=== PATIENT | female | born 1975 | race Caucasian/White ===

== ENCOUNTER → 2020-07-17 15:53 | Outpatient (CLI) | payer OTHER, SELFPAY ==
--- NOTE | ~2020-07-17 | MM_ITS ---
EXAMINATION: MM screening johnathan BI w dru HISTORY: Screening TECHNIQUE: Craniocaudal and mediolateral oblique 3-D tomosynthesis images were obtained and synthetic 2-D images were generated. CAD analysis was submitted and interpreted. COMPARISON: Comparison to multiple prior studies sequentially, with oldest reviewed study dated 09/03. BREAST PARENCHYMAL COMPOSITION: There are scattered areas of fibroglandular density. FINDINGS: There is no evidence of suspicious mass, calcification, or architectural distortion to sugg est malignancy in either breast. There has been no suspicious interval change. IMPRESSION: 1. No mammographic evidence of malignancy. 2. Recommend routine screening mammography in one year. BI-RADS Category 1: Negative Reviewed, dictated and finalized at location A.
== END ==
PROVIDERS: Visit Provider Nurse Practitioner Obstetrics & Gynecology
DX: Z12.31 Encounter for screening mammogram for malignant neoplasm of breast (principal)
CPT/HCPCS: 77063; 77067

== ENCOUNTER 2020-09-03 13:34 | Emergency (ER) | payer OTHER, SELFPAY ==
--- NOTE | ~2020-09-03 | XR_ITS ---
XR shoulder LT min 2V DATE: 09/03/2020 17:15 INDICATION: Left shoulder pain. TECHNIQUE: 4 views COMPARISON: None FINDINGS: There is patchy sclerosis of the humeral head and neck consistent with bone infarct or iglesia gn chondroid tumor. No fracture or dislocation, periosteal reaction or bone destruction. Normal alignment at the acromioc lavicular and glenohumeral joints IMPRESSION: Patchy sclerosis of humeral head and neck, consistent with infarct or benign chondroid ne oplasm Reviewed, dictated and finalized at location A. IMPRESSION: Patchy sclerosis of humeral head and neck, consistent with infarct or benign chondroid neoplasm
--- NOTE | ~2020-09-03 | XR_ITS ---
EXAMINATION: XR chest 2V DATE: 09/03/2020 14:14 INDICATION: Left arm pain TECHNIQUE: PA and lateral views of the chest are obtained. COMPARISON: 06/26/2014 FINDINGS: The lungs are free of acute opacities. There is no pleural effusion or pneumothorax. The ca rdiomediastinal silhouette is normal. There is mild thoracic spondylosis. A stable sclerotic lesion o f the proximal shaft of the left humerus has the appearance of an enchondroma. IMPRESSION: 1. No acute cardiopulmonary abnormality. Reviewed, dictated and finalized at location B.
--- NOTE | 2020-09-03 13:57 | ECG_ITS ---
Measurements Intervals [place] Rate: 76 P: 30 SC: 146 QRS: 42 QRSD: 101 T: 22 QT: 379 QTc: 426 Interpretive Statements SINUS RHYTHM DELAYED PRECORDIAL R/S TRANSITION BORDERLINE ECG Electronically Signed On 09-03-2020 14:53:41 CDT by Blu Terry D.O.
[2020-09-03 14:51] VITALS: BP 136/90; PULSE 84; RESP 14; TEMP 36.6; O2SAT 99
[2020-09-03 14:54] LABS: Basophils Absolute Auto 0.1 K/mm3 (0.0-0.1); Basophils Percent Auto 0.5 % (0.2-1.2); Eosinophils Absolute Auto 0.1 K/mm3 (0-0.3); Eosinophils Percent Auto 0.5 % (0-4.4); Hematocrit 42.1 % (37.0-47.0); Hemoglobin 14.1 g/dL (12.0-15.0); Immature Granulocyte Absolute 0.04 K/mm3 (0.00-0.031); Immature Granulocyte Percent A 0.4 % (0-0.5); Lymphocytes Absolute Auto 1.29 K/mm3 (0.9-3.2); Mean Corpuscular HGB Conc 33.5 g/dl (32-36); Mean Corpuscular Hemoglobin 29.4 pg (26-34); Mean Corpuscular Volume 87.7 fl (80-100); Mean Platelet Volume 10.7 fl (7.4-10.4); Monocytes Absolute Auto 0.5 K/mm3 (0.1-0.6); Monocytes Percent Auto 5.3 % (2.6-8.5); Neutrophils Absolute Auto 7.3 K/mm3 (1.3-6.7); Neutrophils Percent Auto 79.3 % (45.5-73.1); Platelet Count Result 302 k/mm3 (150-375); Red Cell Distribution Width 12.3 % (11.5-14.5); White Blood Count 9.2 K/mm3 (4.5-10.0)
[2020-09-03 15:03] LABS: INR 0.9; Prothrombin Time 12.2 Seconds (11.1-14.7)
[2020-09-03 15:04] LABS: Partial Thromboplastin Time 24.2 SECONDS (22.3-36.8)
[2020-09-03 15:07] LABS: Anion Gap 9 mmol/L (8-16); Blood Urea Nitrogen 11 mg/dL (7-17); Calcium 9.1 mg/dL (8.4-10.2); Carbon Dioxide 25 mmol/L (22-30); Chloride 104 mmol/L (98-107); Estimated CRCL calculation 91 ml/min; Estimated Glomerular Filt Rate > 60; Glucose 125 mg/dL (65-110); Potassium 3.9 mmol/L (3.4-5.0); Sodium 138 mmol/L (137-145)
[2020-09-03 15:18] LABS: Troponin I < 0.012 ng/mL (0.000-0.034)
--- NOTE | 2020-09-03 17:06 | ED.UPPEXIN ---
HPI - Extremity Injury (Upper) General Chief Complaint: Chest Pain Stated Complaint: chest pain/arm pain Time Seen by Provider: 09/03/20 16:51 Source: patient Mode of arrival: ambulatory Limitations: no limitations History of Present Illness HPI narrative: This is a 44-year-old female that presents to the emergency department for left shoulder pain present x2 days. Reports the pain started in the back of her shoulder. It now radiates to the front of her shoulder and anterior chest. It is worsened with palpation of the area. Relieved with certain positions of her shoulder. She took an anti-inflammatory this morning with little relief. Denies fever, cough, shortness of breath, or lower extremity edema. Related Data Allergies Allergy/AdvReac Type Severity Reaction Status Date / Time No Known Allergies Allergy Verified 09/03/20 18:00 Review of Systems Review of Systems: Narrative: CONSTITUTIONAL: Denies fever CARDIOVASCULAR: Denies chest pain. Denies edema. RESPIRATORY: Denies cough or dyspnea. MUSCULOSKELETAL: Reports joint pain, and myalgia. NEUROLOGIC: Denies numbness, or weakness. All systems reviewed & are unremarkable except as noted in HPI and below PMFSH Social History Social History (Updated 09/03/20 @ 17:19 by Nereyda Oconnell PA-C) Smoking status: Never smoker Substance use: never Exam Narrative: Exam Narrative: GENERAL: Well-appearing, well-nourished, and in no acute distress. HEAD: Normocephalic, atraumatic. EYES: EOMI. CHEST: Clear to auscultation. No respiratory distress. No wheezes rales or rhonchi HEART: Regular rate and rhythm. No murmur heard. Normal peripheral pulses. BACK: Tender to palpation of the left parascapular musculature EXTREMITIES: Normal range of motion. No edema, erythema or warmth. Normal radial pulses SKIN: Warm, dry, no rash. NEURO: No focal deficits. Alert and oriented x3. PSYCH: Normal mood and affect Course Consultations Consultation #1: Spoke with SILVANO Brenner for Dr. Nelson who reports patient may follow-up in clinic this week Date: 09/03/20 Time: 18:30 Vital Signs Vital signs: Vital Signs Temperature 98 F 09/03/20 14:51 Pulse Rate 84 09/03/20 14:51 Respiratory Rate 14 09/03/20 14:51 Blood Pressure 136/90 09/03/20 14:51 Pulse Oximetry 99 09/03/20 14:51 Temperature 98 F 09/03/20 14:51 Pulse Rate 79 09/03/20 18:00 Respiratory Rate 17 09/03/20 18:00 Blood Pressure 124/76 09/03/20 18:00 Pulse Oximetry 100 09/03/20 18:00 MDM - Extremity Injury (Upper) MDM Narrative Medical decision making narrative: Patient presents the emergency department for left-sided posterior shoulder pain ongoing over the last 2 days. Reports that it started radiating into the front of her chest which prompted her to be seen. She is afebrile and nontoxic-appearing. She is neurovascularly intact. Vitals are stable. CBC and metabolic panel without concerning findings. EKG without concerning changes and baseline and 3-hour troponin are negative. Her heart score is a two. Chest x-ray is without acute cardiopulmonary abnormality. Left shoulder x-ray shows patchy sclerosis of the humeral head and neck, consistent with infarct or benign chondroid neoplasm. Spoke with SILVANO Brenner for Dr. Nelson who reports patient may follow-up in clinic this week for this finding. Patient reports improvement with Toradol and Valium. Is stable and felt appropriate for further outpatient evaluation. She was given warnings to return to the ER Lab Data Attestation: I reviewed the patient's lab results. Result diagrams: 09/03/20 14:41 09/03/20 14:41 Labs: Lab Results 09/03/20 09/03/20 09/03/20 Range/Units 14:41 14:41 14:41 WBC 9.2 (4.5-10.0) K/mm3 RBC 4.80 (4.2-5.4) M/mm3 Hgb 14.1 (12.0-15.0) g/dL Hct 42.1 (37.0-47.0) % MCV 87.7 (80-100) fl MCH 29.4 (26-34) pg MCHC 33.5 (32-36) g/dl RDW 12.3 (11.5-14.5) % Plt Count 302
[2020-09-03 17:32] LABS: Troponin I < 0.012 ng/mL (0.000-0.034)
[2020-09-03 17:38] VITALS: BP 135/68; PULSE 75; RESP 20; O2SAT 98
[2020-09-03 17:41] VITALS: PULSE 76
[2020-09-03 18:00] VITALS: BP 124/76; PULSE 79; RESP 17; O2SAT 100
[2020-09-03] MEDS: diazePAM INJ (*CRX) 10 MG/2 ML SYRINGE 5 MG IV PUSH (18:12)
[2020-09-03] MEDS: KETOROLAC 30 MG/ML VIAL (*BKC) IV PUSH (18:12)
[2020-09-03 19:32] VITALS: BP 134/78; PULSE 78; RESP 16; O2SAT 98
== END 2020-09-03 19:56 | disposition home or self-care (01) ==
PROVIDERS: Emergency Medicine; Emergency Provider Family Medicine
DX: M89.9 Disorder of bone, unspecified (principal); R07.89 Other chest pain; R94.31 Abnormal electrocardiogram [ECG] [EKG]
CPT/HCPCS: 36415; 71046; 73030; 80048; 84484; 85025; 85610; 85730; 93005; 96374; 96375; 99284; J1885; J3360

== ENCOUNTER 2021-07-05 01:45 | Emergency (ER) | payer OTHER, SELFPAY ==
[2021-07-05 01:46] VITALS: BP 103/82; PULSE 89; RESP 18; TEMP 36.2; O2SAT 93
[2021-07-05] MEDS: KETOROLAC 30 MG/ML VIAL (*BKC) IM (02:18)
--- NOTE | 2021-07-05 03:03 | ED.BACK ---
HPI - Back Pain/Injury General Chief Complaint: Back Pain/Injury Stated Complaint: back pain Time Seen by Provider: 07/05/21 01:56 Source: patient History of Present Illness HPI Narrative: Patient presents with low back pain. Reports she was at the pool today turned and felt a squeezing sensation in her lower back. She continue with her day went out for dinner and spent time with her family and tolerable. She went to bed and woke up to use the restroom and had severe low back pain achy, constant, worse with any sort of movement of her torso, no radiation. She reports when she tries to move she sees stars as her pain is so severe. Denies any bowel or bladder incontinence denies any focal numbness or weakness denies any recent spinal instrumentation, major changes in weight, IV drug use. Related Data Home Medications Medication Instructions Recorded Confirmed azelastine 137 mcg (0.1 %) nasal 137 mcg INTRANASAL Q12H 06/03/21 06/03/21 spray aerosol levocetirizine 5 mg tablet 5 mg PO DAILY 06/03/21 06/03/21 montelukast 10 mg tablet 10 mg PO DAILY 06/03/21 06/03/21 omeprazole 20 mg capsule,delayed 20 mg PO DAILY 06/03/21 06/03/21 release Allergies Allergy/AdvReac Type Severity Reaction Status Date / Time No Known Allergies Allergy Verified 06/03/21 08:13 Review of Systems Review of Systems: CONSTITUTIONAL: Denies fever, chills, or sweats. EYES: Denies visual changes, redness, or discharge. ENT: Denies rhinorrhea, congestion, sore throat, or otalgia. CARDIOVASCULAR: Denies chest pain, palpitations, or edema. RESPIRATORY: Denies cough or dyspnea. GASTROINTESTINAL: Denies abdominal pain, nausea, vomiting, or diarrhea. GENITOURINARY: Denies dysuria or hematuria. SKIN: Denies rash or itching. MUSCULOSKELETAL: Denies joint pain, or myalgia. NEUROLOGIC: Denies headache, numbness, dizziness, or weakness. PSYCHIATRIC: Denies anxiety or depression. 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 HEAD: Normocephalic, atraumatic. EYES: PERRLA and EOMI. ENT: Nares clear, no rhinorrhea or epistaxis. Mucous membranes moist. NECK: Supple. No masses. No JVD ABDOMEN: Soft, nontender, nondistended, normal active bowel sounds. EXTREMITIES: Normal range of motion. No edema. BACK: Diffuse low back pain in the lumbar spine SKIN: Warm, dry, no rash. NEURO: 5 out of 5 strength in bilateral lower extremities sensation intact to light touch 2+ knee reflexes symmetric alert and oriented x3. PSYCH: Normal mood and affect. Course Reevaluation(s) Reevaluation #1: Patient with no significant change in symptoms. Plan reviewed with patient. Patient is calm outpatient plan. Date: 07/05/21 Time: 03:05 Vital Signs Vital signs: Vital Signs Temperature 36.2 C L 07/05/21 01:46 Pulse Rate 89 07/05/21 01:46 Respiratory Rate 18 07/05/21 01:46 Blood Pressure 103/82 07/05/21 01:46 Pulse Oximetry 93 07/05/21 01:46 Temperature 36.2 C L 07/05/21 01:46 Pulse Rate 80 07/05/21 03:48 Respiratory Rate 16 07/05/21 03:48 Blood Pressure 110/72 07/05/21 03:48 Pulse Oximetry 100 05
[2021-07-05] MEDS: CYCLOBENZAPRINE HCL 10 MG TABLET PO (03:42)
[2021-07-05 03:48] VITALS: BP 110/72; PULSE 80; RESP 16; O2SAT 100
== END 2021-07-05 03:52 | disposition home or self-care (01) ==
PROVIDERS: Emergency Provider Emergency Medicine; PCP Family Medicine
DX: M54.50 Low back pain, unspecified (principal); Z86.16 Personal history of COVID-19
CPT/HCPCS: 96372; 99283; A9270; J1885

== ENCOUNTER → 2021-09-30 07:02 | Outpatient (CLI) | payer OTHER, SELFPAY ==
--- NOTE | ~2021-09-30 | MM_ITS ---
EXAMINATION: MM screening johnathan BI w dru HISTORY: Screening mammogram TECHNIQUE: Craniocaudal and mediolateral oblique 3-D tomosynthesis images were obtained and synthetic 2-D images were generated. CAD analysis was submitted and interpreted. COMPARISON: 07/17/2020, 01/05/2017, 12/05/2015 bilateral screening mammogram examinations BREAST PARENCHYMAL COMPOSITION: There are scattered areas of fibroglandular density. FINDINGS: Suggestion of a new 5 mm irregular mid to lower lateral left breast mass (MLO Tomosynthesis image 16/96; craniocaudal Tomosynthesis image 16/84). Diagnostic left mammogram is recommended, with ultrasound if required. Otherwise there is no evidence of suspicious mass, calcification, or architectural distortion to sugg est malignancy in either breast. There has been no other suspicious interval change. IMPRESSION: 1. Possible new 5 mm irregular mass, mid to lower outer left breast 2. Diagnostic left mammogram is recommended, with ultrasound if required BI-RADS Category 0: Incomplete: Needs additional imaging evaluation. Reviewed, dictated and finalized at location A.
== END ==
PROVIDERS: PCP Physician Assistant Medical; Visit Provider Nurse Practitioner Obstetrics & Gynecology
DX: Z12.31 Encounter for screening mammogram for malignant neoplasm of breast (principal); R92.8 Other abnormal and inconclusive findings on diagnostic imaging of breast
CPT/HCPCS: 77063; 77067

== ENCOUNTER → 2021-11-05 07:35 | Outpatient (CLI) | payer OTHER, SELFPAY ==
--- NOTE | ~2021-11-05 | MMUS_ITS ---
EXAMINATION: MM diagnostic johnathan LT w dru, US breast LT limited HISTORY: Possible left breast mass on screening mammogram TECHNIQUE: Additional 3-D tomosynthesis images of the left breast were performed and synthetic 2-D im ages were generated. CAD analysis was submitted and interpreted. High resolution limited left breast ultrasound was performed. COMPARISON: 09/30/2021, 07/17/2020, 01/05/2017 FINDINGS: MAMMOGRAPHIC FINDINGS: There is a 6 mm mass in the middle third of the outer breast with irregular and indistinct margins at the 3:00 location 8 cm from the nipple. ULTRASOUND: There is a 6 mm x 4 mm mildly irregular, parallel, hypoechoic mass with circumscribed margins, finance intern al vascularity, and no posterior features at the 3:00 location 6 cm from the nipple. IMPRESSION: 1. Indeterminate left breast mass. 2. Ultrasound-guided biopsy is recommended. BI-RADS category 4, suspicious findings. Reviewed, dictated and finalized at location A. IMPRESSION: 1. Indeterminate left breast mass. 2. Ultrasound-guided biopsy is recommended. BI-RADS category 4, suspicious findings.
== END ==
PROVIDERS: PCP Physician Assistant Medical; Visit Provider Nurse Practitioner Obstetrics & Gynecology
DX: R92.8 Other abnormal and inconclusive findings on diagnostic imaging of breast (principal)
CPT/HCPCS: 76642; 77061; 77065; G0279

== ENCOUNTER → 2022-06-30 09:13 | Outpatient (CLI) | payer OTHER, SELFPAY ==
--- NOTE | ~2022-06-30 | CT_ITS ---
EXAMINATION: CT sinus wo con DATE: 06/30/2022 09:24 INDICATION: Chronic sinusitis TECHNIQUE: Computed tomography (CT) of the paranasal sinuses was performed without intravenous contra st. The dose-length product was 257.01 mGy-cm. Automated exposure control and iterative reconstructio n technique were employed. COMPARISON: None FINDINGS: Paranasal sinuses and mastoids are pneumatized. No significant mucosal thickening, air-flui d level or mucoperiosteal reaction. There is a small osteoma involving the left ethmoid air cells. Ma stoids are pneumatized. Leftward nasal septal deviation. Ostiomeatal units are patent. IMPRESSION: 1. No significant sinus disease. Reviewed, dictated and finalized at location L.
== END ==
PROVIDERS: PCP Physician Assistant Medical; Visit Provider Otolaryngology
DX: J32.9 Chronic sinusitis, unspecified (principal)
CPT/HCPCS: 70486

== ENCOUNTER 2022-09-12 09:01 | Outpatient (CLI) | payer OTHER, SELFPAY ==
--- NOTE | 2022-09-12 09:07 | ECG_ITS ---
Measurements Intervals [place] Rate: 75 P: 34 VT: 152 QRS: 47 QRSD: 96 T: 33 QT: 391 QTc: 438 Interpretive Statements SINUS RHYTHM BASELINE ARTIFACT- II, III, AVR, AVL, AVF NORMAL ECG COMPARED TO ECG 09/03/2020 13:53:40 NO SIGNIFICANT CHANGES Electronically Signed On 09-12-2022 11:02:38 CDT by Blu Terry D.O.
== END 2022-09-12 09:02 | disposition home or self-care (01) ==
LOC: ANHCARD 09:03
PROVIDERS: PCP Physician Assistant Medical; Visit Provider Otolaryngology
DX: E78.5 Hyperlipidemia, unspecified (principal)
CPT/HCPCS: 93005

== ENCOUNTER 2022-09-18 02:49 | Day surgery (SDC) | payer OTHER, SELFPAY ==
[2022-09-09 10:10] VITALS: BMI 33.0
--- NOTE | 2022-09-09 10:21 | PC.NURSE ---
Report to the Outpatient Waiting Room, entrance under the green pavilion located off [facility], at time 10:30AM on date 09-18-22. Planned Procedure Time: 12:30PM. Time changes happen often and if your time is changed the preop area will call you the afternoon before. - You and your visitor will be asked to self-screen and do not enter if you have any COVID symptoms. - A mask is optional within the hospital at this time. Patients may have clear liquids (water, carbonated beverages, clear teas, apple juice) until 3 hours prior to surgery (09:30AM) with a maximum of 20 ounces. - No food from midnight until time of surgery Take the following medications with a SIP of water the morning of surgery: LEVOTHYROXINE DO NOT STOP ANY OF YOUR OTHER PRESCRIPTION MEDICATIONS PRIOR TO SURGERY ?EXCEPT THE FOLLOWING Medications to discontinue per physician: N/A Please no make-up, nail thai, hairspray, perfume, deodorant, or body powder the day of surgery. No jewelry (including any body piercings) or valuables the day of surgery, leave them at home. Please take a shower or bath the night before, or the morning of, surgery with an antibacterial soap. Wear comfortable, loose fitting clothing. - Jewelry must be removed prior to entering the operating room. Rings and piercings that are not removed may be cut off. - The hospital will not accept responsibility for valuables. - Please leave all valuables, including medications, at home the day of surgery. If you are going home after surgery, a licensed bellman driver must drive you home. - NO public transportation without another adult if you receive anesthesia. - We recommend that an adult stay with you for 24 hours following discharge. - We also recommend that you do not drive, make important decision, drink alcoholic beverages, or take any drugs that were not prescribed by your health care provider for at least 24 hours after your discharge time. Follow any additional instructions given to you from your surgeon. If you or anyone in your household have experienced Covid symptoms in the past week, please notify your surgeon or the nurse liaison at the phone number below for possible testing. Telephone instructions given to PATIENT and asked if any additional questions and then verbalized understanding. Patient advised to call surgeon office or pre surgery nurse liaison [phone] if any additional questions.
--- NOTE | 2022-09-17 14:31 | PM.IMHP ---
H&P: HPI History of Present Illness Date/Time: 09/17/22 14:31 Chief Complaint: Skull base osteoma chronic sinusitis septal deviation turbinate hypertrophy recurrent sinusitis Narrative: planned procedure Review of Systems Review of Systems: All systems reviewed & are unremarkable except as noted in HPI and below PMFSH Past Medical History Medical History BMI 40.0-44.9, adult COVID-19 Family History Family History (Updated 06/24/22 @ 08:57 by Leah De Los Santos CMA) Father Hypertension Hyperlipidemia Respiratory disease COPD (chronic obstructive pulmonary disease) Mother H/O blood clots Sibling Diabetes mellitus Grandparent Alcoholism Social History Social History (Updated 06/24/22 @ 08:55 by Leah De Los Santos CMA) Smoking status: Never smoker Second hand tobacco smoke exposure: No Alcohol intake: current Drinks per week: 6 Alcohol use details: socially Substance use: never Substance use type: does not use Lack of Transportation: No Lack of Food: Never True Current Housing: I Have Housing Concerned About Future Housing: No Difficulty Paying Gas/Electric Bills: No Difficulty Paying for Meds: No Currently Unemployed: No Education: High School Diploma/GED Difficulty w/ Childcare or Family Care: No Living arrangements: with roommate(s) Occupation/Education: occupation 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 Gender identity (if verbalized by the patient): Female Spiritual care concerns: No Meds Home Medications and Allergies Home Medications Medication Instructions Recorded Confirmed Type azelastine 137 mcg (0.1 %) nasal 137 mcg intranasal Q12H 06/03/21 09/09/22 History spray aerosol levocetirizine 5 mg tablet (Xyzal) 5 mg PO DAILY 06/03/21 09/09/22 History montelukast 10 mg tablet 10 mg PO DAILY 06/03/21 09/09/22 History omeprazole 20 mg capsule,delayed 20 mg PO DAILY 06/03/21 09/09/22 History release rosuvastatin 20 mg tablet (Crestor) 20 mg PO DAILY #30 tabs 06/10/22 09/09/22 Rx trazodone 50 mg tablet 50 mg PO .qhs #30 tabs 06/10/22 09/09/22 Rx levothyroxine 50 mcg tablet 50 mcg PO DAILY #90 tabs 07/26/22 09/09/22 Rx Allergies Allergy/AdvReac Type Severity Reaction Status Date / Time No Known Allergies Allergy Verified 09/09/22 10:12 Exam Narrative: skull base osteoma chronic appearing sinuses septal deviation turbinate hypertrophy Assessment and Plan Assessment and plan (1) Nasal congestion: Code(s): R09.81 - Nasal congestion Status: Acute Assessment and Plan: plan image guided endoscopic bilateral maxillary antrostomies total ethmoidectomies removal of left-sided skull base tumor versus just drilling it down. Lost to septoplasty turbinate reduction bilaterally outfracture. Risks were discussed including the fact that this is fairly aggressive sinus surgery the patient does have ethmoid disease on the right and recurrent sinus infections documented PCP office like 6-7 per year. Risks were discussed including CSF leak brain brain damage change in vision total blindness need for further procedures need for recurrent debridements. Postoperative infection. Damage to any structure above the clavicles by myself. Damage to any structure during the induction and maintenance of anesthesia. Septal perforation. Time off work time off school. Luis E or chronic use. Patient voiced understanding and agreed. (2) Nasal obstruction: Code(s): J34.89 - Other specified disorders of nose and nasal sinuses Status: Acute (3) Hypertrophy of both inferior nasal turbinates: Code(s): J34.3 - Hypertrophy of nasal turbinates Status: Acute (4) Nasal septal deviation: Code(s): J34.2 - Deviated nasal septum Status: Acute (5) PND (post-nasal drip): Code(s): R09.82 - Postnasal drip
[2022-09-18] VITALS (9 sets, daily range): BP systolic 127–155; BP diastolic 67–99; PULSE 61–89; RESP 12–20; TEMP 36.2–36.5; O2SAT 97–100; BMI 44.2
--- NOTE | 2022-09-18 07:18 | WPDHPUPDATE1 ---
History and Physical Update Update Date/Time: 09/18/22 07:18 History and Physical has been reviewed, including an updated exam of the patient. There are NO changes in the patient's condition. Risks, benefits, and alternatives have been discussed and questions answered. Patient agrees to proceed with procedure.
[2022-09-18] MEDS: LACTATED RINGERS 1,000 ML 30 ML IV CONT ×2 (08:10→12:22)
[2022-09-18] MEDS: SCOPOLAMINE 1.5 MG PATCH TRANSDERM (08:20)
[2022-09-18] MEDS: ACETAMINOPHEN 500 MG TABLET 1000 MG PO (08:21)
--- NOTE | 2022-09-18 09:01 | WPDANESEPPF ---
Anes - Initial Pre Proc Eval Procedure: Operation Date: 09/18/22 09:30 Proposed Procedures p Image Guided Bilateral Inferior Turbinectomy with Outfracture, Right Maxillary Antrostomy without Tissue Removal, Bilateral Total Ethmoidectomies, Resection Skull Base Tumor - Favian Salas MD s Septoplasty - Favian Salas MD Date/Time: 09/18/22 09:01 Surgeon: Favian Salas MD Pre Op Diagnosis: Chr Sinusitis Patient Data Age: 46 Gender: F Height: 1.57 m Weight: 109.8 kg Allergies Allergy/AdvReac Type Severity Reaction Status Date / Time No Known Allergies Allergy Verified 09/18/22 07:56 Home Medications Medication Instructions Recorded Confirmed Type azelastine 137 mcg (0.1 %) nasal 137 mcg intranasal Q12H 06/03/21 09/09/22 History spray aerosol levocetirizine 5 mg tablet (Xyzal) 5 mg PO DAILY 06/03/21 09/09/22 History montelukast 10 mg tablet 10 mg PO DAILY 06/03/21 09/09/22 History omeprazole 20 mg capsule,delayed 20 mg PO DAILY 06/03/21 09/09/22 History release rosuvastatin 20 mg tablet (Crestor) 20 mg PO DAILY #30 tabs 06/10/22 09/09/22 Rx trazodone 50 mg tablet 50 mg PO .qhs #30 tabs 06/10/22 09/09/22 Rx levothyroxine 50 mcg tablet 50 mcg PO DAILY #90 tabs 07/26/22 09/18/22 Rx Patient hx anesthesia problems: none Family hx anesthesia problems: none Results Review: All pre-operative results and documents have been reviewed as part of the pre-operative evaluation. [facility] Past Medical History Medical History BMI 40.0-44.9, adult COVID-19 Family History Family History Father Hypertension Hyperlipidemia Respiratory disease COPD (chronic obstructive pulmonary disease) Mother H/O blood clots Sibling Diabetes mellitus Grandparent Alcoholism Social History Social History Smoking status: Never smoker Second hand tobacco smoke exposure: No Alcohol intake: current Drinks per week: 6 Alcohol use details: socially Substance use: never Substance use type: does not use Lack of Transportation: No Lack of Food: Never True Current Housing: I Have Housing Concerned About Future Housing: No Difficulty Paying Gas/Electric Bills: No Difficulty Paying for Meds: No Currently Unemployed: No Education: High School Diploma/GED Difficulty w/ Childcare or Family Care: No Living arrangements: with roommate(s) Occupation/Education: occupation 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 Informed Consent: The patient's anesthetic plan and its attendant risks and benefits were discussed with the patient/family/POA. Questions were solicited and answers provided to the satisfaction of the patient/family/POA.
[2022-09-18] MEDS: ceFAZolin 2 GM/D5W 50 ML 2 GM/50 ML BAG IVPB (09:30)
[2022-09-18] MEDS: LIDO 1%/EPINEPHRINE 1:100,000 50 ML VIAL INFILTRATE (09:54)
[2022-09-18] MEDS: OXYMETAZOLINE HCL 0.05% NAS 15 ML BTL (*BKC) 1 SPRAY NASAL (09:54)
[2022-09-18] MEDS: fentaNYL CITRATE INJ (*CRX) 100 MCG/2 ML VIAL 25 MCG IV PUSH ×4 (12:40→12:53)
--- NOTE | 2022-09-18 12:52 | W.PM.PROC2 ---
Procedure Note - Detailed Date of Procedure 09/18/22 Pre-op Diagnosis Chr Sinusitis, septal deviation, inferior turbinate hypertrophy, skull base tumor Post-op Diagnosis Same Procedure Performed resection of left skull base tumor inferior turbinate reduction with outfracture endoscopic assisted septoplasty bilateral image guided maxillary antrostomies bilateral image guided anterior ethmoidectomies Surgeon Favian Salas MD Anesthesia General Indications see above Findings minimally diseased mucosa in the aforementioned sinuses severe left septal deviation well reduced large turbinates well reduced large skull base osteoma will sent for pathologic analysis 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 Description of Procedure Patient identified consent verified. Patient brought operating. . General anesthesia induced endotracheal tube secured the airway. Patient prepped draped position procedure confirmed 2nd time-out performed. Image guidance initiated confirmed. Afrin-soaked pledgets placed 5 minutes then. Total 13 cc 1% lidocaine 1 100,000 parts epinephrine injected the bilateral nasal septum. [place] incision made left-sided nasal septal flap elevated with 7 [place]e suction osteotome utilized to cross right nasal septal flap elevated deviated cartilage and bone removed Kian [place] forceps Beny forceps and osteotome. Denis incision closed interrupted 5 0 fast gut sutures. Turbinates reduced submucosal plane with microdebrider with turbinate blade and then outfractured [place] elevator. Entry point was cauterized mulberry tips were cauterized. Maxillary antrostomies performed with image guidance ball tip probe straight through cut micro and microdebrider image guidance microdebrider. The all the sinuses were opened up using image guidance. They were ensured to connect the natural os no injury to the orbit and ethmoidectomies anteriorly performed with [place] microdebrider image guidance straight through cut. Left osteoma encountered middle turbinectomy performed because the osteoma involving middle turbinate. Ostium was drilled in the skull base using paula tipped high-speed 70 degree drill. Other able to crack the base off the skull base and I tried pretty forcefully. The sinuses were widely opened around the sethi present a problem if it did be decades. Bilateral nasal passages copiously irrigated suctioned out minimal bleeding. Nova pack placed bilaterally. Lerner splints placed bilaterally sutured anteriorly using 3-0 mattressed nylon suture. Ensured to be lateral to the right turbinate. Patient tolerated procedure well no complications blood loss 75 cc. I performed all dictated portions procedure. Care the patient given Anesthesiology. Estimated Blood Loss 75 Drains No Packing Yes (Novapak) Pathology Yes Complications No immediate complications Condition Stable Disposition PACU [facility] Billing Surgery - Charge Forward: Surgery Billing
[2022-09-18] MEDS: oxyCODONE HCL (*CRX) 5 MG TAB IR PO (13:36)
[2022-09-18] MEDS: ONDANSETRON INJ 4 MG/2 ML VIAL IV PUSH (13:41)
== END 2022-09-18 14:35 | disposition home or self-care (01) ==
PROVIDERS: PCP Physician Assistant Medical; Visit Provider Otolaryngology
PROC: (CPT 31299; principal; 2022-09-18 09:30)
PROC: (CPT 30520; 2022-09-18 09:30)
DX: J32.9 Chronic sinusitis, unspecified (principal); D16.4 Benign neoplasm of bones of skull and face; J34.2 Deviated nasal septum; J34.3 Hypertrophy of nasal turbinates; R09.81 Nasal congestion; J34.89 Other specified disorders of nose and nasal sinuses; R09.82 Postnasal drip; E66.01 Morbid (severe) obesity due to excess calories; Z68.41 Body mass index [BMI] 40.0-44.9, adult
CPT/HCPCS: 31299; 31256; 31254; 61782; 30520; 30140; 88307; A9270; J0330; J0690; J1100; J2250; J2405; J2704; J3010; J7120

== ENCOUNTER 2023-03-18 11:24 | Outpatient (CLI) | payer OTHER, SELFPAY ==
--- NOTE | ~2023-03-18 | MM_ITS ---
EXAMINATION: MM screening johnathan BI w dru HISTORY: Screening TECHNIQUE: Craniocaudal and mediolateral oblique 3-D tomosynthesis images were obtained and synthetic 2-D images were generated. CAD analysis was submitted and interpreted. COMPARISON: Comparison to multiple prior studies sequentially, with oldest reviewed study dated 09/03. BREAST PARENCHYMAL COMPOSITION: Not dense: There are scattered areas of fibroglandular density. FINDINGS: There is no evidence of suspicious mass, calcification, or architectural distortion to sugg est malignancy in either breast. There has been no suspicious interval change. IMPRESSION: 1. No mammographic evidence of malignancy. 2. Recommend routine screening mammography in one year. 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
== END 2023-03-18 11:25 ==
PROVIDERS: PCP Nurse Practitioner Obstetrics & Gynecology; Visit Provider Nurse Practitioner Obstetrics & Gynecology
DX: Z12.31 Encounter for screening mammogram for malignant neoplasm of breast (principal)
CPT/HCPCS: 77063; 77067

== ENCOUNTER 2023-05-04 12:20 | Emergency (ER) | payer OTHER, SELFPAY ==
--- NOTE | ~2023-05-04 | CT_ITS ---
EXAMINATION: CTA BRAIN/CAROTID DATE: 05/04/2023 13:21 INDICATION: Headache. Right-sided tingling. TECHNIQUE: Computed tomographic angiography (CTA) of the head and neck was performed with 100 mL Omni paque-350 intravenous contrast. Multiplanar reconstructions and maximum intensity projection 3D-recon structions of the carotid arteries and of the intracranial arteries were created by the technologist on a separate workstation. Precontrast CT of the head was also obtained. Automated exposure control and iterative reconstruction technique were employed.The dose-length product was 1539.34 mGy-cm. COMPARISON: None. FINDINGS: Carotid arteries: Ectatic ascending thoracic aorta which measures up to 4.0 cm in maximal diameter. There is is no evid ent atherosclerotic plaque with 0% stenosis of the right and left carotid bulbs relative to normal di stal artery lumen diameter (NASCET criteria). Left vertebral artery is dominant. 3.8 cm right thyroid mass. Cervical soft tissues are otherwise unremarkable. Apices of the lungs are clear. Likely positi onal nonfocal mild reversal of the normal cervical lordosis. Head: No acute intracranial hemorrhage, acute infarction or abnormal extra axial fluid collection. Ventricl es are normal and symmetric. No mass/mass effect. No abnormally enhancing brain lesions on the postco ntrast imaging. The orbits and mastoid air cells are normal. Mild mucosal thickening in the left ethm oid sinus and more prominent mucosal thickening at the left maxillary sinus. There are postoperative changes of bilateral antral window procedures along with a left middle turbinectomy and partial ethmo idectomy. Intracranial arteries Left vertebral artery is dominant. There is no hemodynamically significant stenosis in the vertebral, basilar and internal carotid arteries. There are no aneurysms identified. Both A1 and P1 segments a re patent. Cerebral arterial arborization appears symmetric. IMPRESSION: 1. No evident atherosclerotic plaque with 0% stenosis of the right and left carotid bulbs relative to normal distal artery lumen diameter (NASCET criteria). 2. Normal brain and cerebral CT angiogram. 3. Indeterminate 3.8 cm right thyroid mass. Recommend thyroid ultrasound for risk stratification. 4. Ectatic ascending thoracic aorta measuring up to 4.0 cm. Reviewed, dictated and finalized at location A. IMPRESSION: 1. No evident atherosclerotic plaque with 0% stenosis of the right and left car otid bulbs relative to normal distal artery lumen diameter (NASCET criteria). 2. Normal brain and cerebral CT angiogram. 3. Indeterminate 3.8 cm right thyroid mass. Recommend thyroid ultrasound for ri sk stratification. 4. Ectatic ascending thoracic aorta measuring up to 4.0 cm.
[2023-05-04 12:25] VITALS: BP 152/92; PULSE 97; RESP 17; TEMP 36.6; O2SAT 100
--- NOTE | 2023-05-04 12:33 | ECG_ITS ---
Measurements Intervals [place] Rate: 75 P: 32 IN: 149 QRS: 21 QRSD: 92 T: 29 QT: 387 QTc: 434 Interpretive Statements SINUS RHYTHM NORMAL ECG COMPARED TO ECG 09/12/2022 09:19:10 NO SIGNIFICANT CHANGES Electronically Signed On 05-04-2023 12:50:01 CDT by Blu Terry D.O.
[2023-05-04 12:58] LABS: Basophils Absolute Auto 0.1 K/mm3 (0.0-0.1); Basophils Percent Auto 0.5 % (0.2-1.2); Eosinophils Absolute Auto 0.1 K/mm3 (0-0.3); Eosinophils Percent Auto 0.5 % (0-4.4); Hematocrit 44.3 % (37.0-47.0); Hemoglobin 14.2 g/dL (12.0-15.0); Immature Granulocyte Absolute 0.05 K/mm3 (0.00-0.031); Immature Granulocyte Percent A 0.4 % (0-0.5); Lymphocytes Absolute Auto 1.93 K/mm3 (0.9-3.2); Lymphocytes Percent Auto 17.1 % (18.3-44.2); Mean Corpuscular HGB Conc 32.1 g/dl (32-36); Mean Corpuscular Hemoglobin 27.7 pg (26-34); Mean Corpuscular Volume 86.5 fl (80-100); Monocytes Absolute Auto 0.5 K/mm3 (0.1-0.6); Monocytes Percent Auto 4.3 % (2.6-8.5); Neutrophils Absolute Auto 8.7 K/mm3 (1.3-6.7); Neutrophils Percent Auto 77.2 % (45.5-73.1); Platelet Count Result 347 k/mm3 (150-375); Red Blood Count 5.12 M/mm3 (4.2-5.4); Red Cell Distribution Width 12.9 % (11.5-14.5); White Blood Count 11.3 K/mm3 (4.5-10.0)
[2023-05-04 13:02] VITALS: BP 143/79; PULSE 84; RESP 17; O2SAT 96
[2023-05-04 13:02] LABS: Alanine Aminotransferase 29 U/L (6-35); Albumin Level 4.4 g/dL (3.5-5.1); Alkaline Phosphatase 161 U/L (38-126); Anion Gap 5 mmol/L (8-16); Aspartate Amino Transferase 33 U/L (14-36); Bilirubin,Total 0.6 mg/dL (0.2-1.3); Blood Urea Nitrogen 15 mg/dL (7-17); Calcium 9.1 mg/dL (8.4-10.2); Carbon Dioxide 30 mmol/L (22-30); Chloride 103 mmol/L (98-107); Estimated CRCL calculation 109 ml/min; Estimated Glomerular Filt Rate > 60; Glucose 136 mg/dL (65-110); Potassium 3.9 mmol/L (3.4-5.0); Sodium 138 mmol/L (137-145)
[2023-05-04 13:03] VITALS: PULSE 80; RESP 15; O2SAT 100
[2023-05-04 13:04] LABS: INR 0.9; Prothrombin Time 12.9 Seconds (11.1-14.7)
[2023-05-04 13:05] LABS: Partial Thromboplastin Time 27.3 Seconds (22.3-36.8)
[2023-05-04 13:14] LABS: Troponin I < 0.012 ng/mL (0.000-0.034)
[2023-05-04 13:29] LABS: Influenza A QL RT-PCR Negative (Negative); Influenza B QL RT-PCR Negative (Negative); RSV RNA, RT-PCR Negative (Negative); SARS-CoV-2 RNA PCR Negative (Negative)
[2023-05-04 13:46] LABS: Appearance Urine Clear (Clear); Bilirubin Urine Negative (Negative); Blood Urine Negative (Negative); Color Urine Yellow (Yellow); Glucose Urine UA Negative (Negative); Ketones Urine Negative (Negative); Leukocyte Esterase Ur Negative LEU/UL (Negative); Nitrate Urine Negative (Negative); Protein Urine Negative (Negative); Urobilinogen Urine 0.2 mg/dL (<2.0)
[2023-05-04 14:00] LABS: Specific Grav Ur 1.049 (1.001-1.035)
[2023-05-04 14:01] VITALS: PULSE 78; RESP 17; O2SAT 99
[2023-05-04 14:01] LABS: Add Urine Microscopic? NO
--- NOTE | 2023-05-04 14:17 | ED.GENADULT ---
HPI - General Adult General Chief complaint: Unspecified Stated complaint: tingling left side of body Time Seen by Provider: 05/04/23 13:01 History of Present Illness HPI narrative: 47-year-old female with a history of hypothyroidism, hyperlipidemia presenting with paresthesias. Patient states that yesterday she developed a severe right-sided headache. She was sensitive to light and sounds. States that it was so bad that she had to call off work which she has never done before. She took Aleve and went to sleep and when she woke up this morning the headache had gone down to about a 4/10. States that she went to work and around 8:00 a.m. normal less paresthesias on the right side of her body. States that her arm and leg feel tingly like they are waking up from falling asleep. No vision or speech changes. No weakness. No recent infectious symptoms. No further complaints. Related Data Home Medications Medication Instructions Recorded Confirmed azelastine 137 mcg (0.1 %) nasal 137 mcg intranasal Q12H 06/03/21 10/29/22 spray aerosol levocetirizine 5 mg tablet (Xyzal) 5 mg PO DAILY 06/03/21 10/29/22 montelukast 10 mg tablet 10 mg PO DAILY 06/03/21 10/29/22 omeprazole 20 mg capsule,delayed 20 mg PO DAILY 06/03/21 10/29/22 release Allergies Allergy/AdvReac Type Severity Reaction Status Date / Time No Known Allergies Allergy Verified 05/04/23 12:21 Review of Systems Review of Systems: All systems reviewed & are unremarkable except as noted in HPI and below PMFSH Past Medical History Medical History BMI 40.0-44.9, adult COVID-19 Family History Family History Father Hypertension Hyperlipidemia Respiratory disease COPD (chronic obstructive pulmonary disease) Mother H/O blood clots Sibling Diabetes mellitus Grandparent Alcoholism Social History Social History Smoking status: Never smoker Second hand tobacco smoke exposure: No Alcohol intake: current Drinks per week: 6 Alcohol use details: socially Substance use: never Substance use type: does not use Lack of Transportation: No Lack of Food: Never True Current Housing: I Have Housing Concerned About Future Housing: No Difficulty Paying Gas/Electric Bills: No Difficulty Paying for Meds: No Currently Unemployed: No Education: High School Diploma/GED Difficulty w/ Childcare or Family Care: No Living arrangements: with roommate(s) Occupation/Education: occupation 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 HEAD: Normocephalic, atraumatic. EYES: PERRLA and EOMI. ENT: . Mucous membranes moist. NECK: Supple. CHEST: No respiratory distress. HEART: Regular rate and rhythm EXTREMITIES: Normal range of motion. No edema. SKIN: Warm, dry, no rash. NEURO: Alert and oriented x3. 5/5 strength in all extremities, no pronator drift, finger to nose intact, no facial droop, no aphasia or dysarthria, +diminished sensation R arm and leg PSYCH: Normal mood and affect. Course Vital Signs Vital signs: Vital Signs Temperature 97.8 F 05/04/23 12:25 Pulse Rate 97 05/04/23 12:25 Respiratory Rate 17 05/04/23 12:25 Blood Pressure 152/92 H 05/04/23 12:25 Pulse Oximetry 100 05/04/23 12:25 Oxygen Delivery Room Air 05/04/23 12:25 Temperature 98.4 F 05/04/23 16:39 Pulse Rate 78 05/04/23 16:39 Respiratory Rate 17 05/04/23 16:39 Blood Pressure 134/82 05/04/23 16:39 Pulse Oximetry 100 05/04/23 16:39 Oxygen Delivery Room Air 05/04/23 12:25 Medical Decision Making MDM Narrative Medical decision making narrative: 4
[2023-05-04] MEDS: KETOROLAC 30 MG/ML VIAL (*BKC) IV PUSH (14:25)
[2023-05-04] MEDS: diphenhydrAMINE HCl INJ 50 MG/ML VIAL IV PUSH (14:26)
[2023-05-04] MEDS: PROCHLORPERAZINE EDISYLATE 10 MG/2 ML VIAL IV PUSH (14:26)
[2023-05-04] MEDS: SODIUM CHLORIDE 0.9% IV 1,000 ML 999 ML IV CONT (14:26)
[2023-05-04 14:30] VITALS: BP 151/93; PULSE 85; RESP 20; O2SAT 100
[2023-05-04 14:32] LABS: Magnesium 1.9 mg/dL (1.6-2.3)
[2023-05-04 16:39] VITALS: BP 134/82; PULSE 78; RESP 17; TEMP 36.9; O2SAT 100
[2023-05-05 07:47] LABS: Glucose Point of Care 125 mg/dl (65-105)
== END 2023-05-04 16:40 | disposition home or self-care (01) ==
PROVIDERS: Emergency Medicine; Emergency Provider Emergency Medicine; PCP Physician Assistant Medical
DX: R20.2 Paresthesia of skin (principal); R51.9 Headache, unspecified; Z20.822 Contact with and (suspected) exposure to COVID-19; E03.9 Hypothyroidism, unspecified; E78.5 Hyperlipidemia, unspecified; Z86.16 Personal history of COVID-19; E07.89 Other specified disorders of thyroid
CPT/HCPCS: 36415; 70496; 70498; 80053; 81025; 82948; 83735; 84484; 85025; 85610; 85730; 87637; 93005; 96361; 96374; 96375; 99284; J0780; J1200; J1885; J7030; Q9967

== ENCOUNTER 2023-05-13 16:22 | Outpatient (CLI) | payer OTHER, SELFPAY ==
--- NOTE | ~2023-05-13 | US_ITS ---
US thyroid INDICATION: Thyroid mass TECHNIQUE: Real-time sonographic images of the thyroid gland were obtained. COMPARISON: No prior studies for comparison. FINDINGS: The right thyroid lobe measures 6.1 x 3.2 x 2.1 cm. The left thyroid lobe measures 3.7 x 1 .5 x 0.9 cm. In the right lobe there is a 3.8 x 2.8 x 3.1 cm mostly solid slightly hyperechoic wider than tall smoothly marginated mass without echogenic foci, TR 3. No mass is identified in the left lo be. Normal vascular flow is present. IMPRESSION: 1. Right thyroid mass measuring 3.8 cm, TR 3. Ultrasound-guided fine-needle aspiration biopsy recommended. Reviewed, dictated and finalized at location B.
== END 2023-05-13 16:23 ==
LOC: MICIMG 16:22
PROVIDERS: PCP Nurse Practitioner Family; Visit Provider Nurse Practitioner Family
DX: E07.89 Other specified disorders of thyroid (principal)
CPT/HCPCS: 76536

== ENCOUNTER 2023-07-02 12:47 | Outpatient (CLI) | payer OTHER, SELFPAY ==
--- NOTE | ~2023-07-02 | US_ITS ---
EXAMINATION: US FNA w image guidance DATE: 07/02/2023 13:50 INDICATION: Right thyroid nodule TECHNIQUE: A time-out was performed to verify the patient's name, date of , and procedure to be performed . The procedure and its benefits and risks were discussed with the patient. Risks specifically discus sed included bleeding and infection. The patient understood the risks and agreed to proceed. The neck was prepped and draped in the usual sterile manner. 5 mL 1% lidocaine was used for local anesthesia . 6 passes were made with a 25G needle into the lesion. Appropriate needle location was documented with continuous sonographic guidance. A sterile bandage was applied. There were no immediate compli cations. FINDINGS: Grayscale ultrasound images demonstrate biopsy needles advanced into a 4.1 x 4.1 x 2.8 cm TI RADS 3 r ight thyroid mass. IMPRESSION: 1. Successful ultrasound-guided fine needle aspiration of a 4.1 cm TI RADS 3 right thyroid mass. Reviewed, dictated and finalized at location A. IMPRESSION: 1. Successful ultrasound-guided fine needle aspiration of a 4.1 cm TI RADS 3 r ight thyroid mass.
== END 2023-07-02 12:48 | disposition home or self-care (01) ==
PROVIDERS: PCP Nurse Practitioner Family; Visit Provider Nurse Practitioner Family
DX: E07.89 Other specified disorders of thyroid (principal)
CPT/HCPCS: 10005; 88172; 88173; 88305

== ENCOUNTER 2023-07-13 09:07 | Outpatient (CLI) | payer OTHER, SELFPAY ==
--- NOTE | 2023-07-13 11:00 | NEURO_ITS ---
Impression: # Complains of numbness of arms and legs. Non-Diabetic. # Normal Nerve Conduction Study. No Carpal Tunnel Syndrome or ulnar neuropathy. # Normal needle/EMG exam. # Clinical correlation recommended. Nerve Conduction Studies Anti Sensory Summary Table Stim Site NR Peak (ms) P-T Amp (?V) Site1 Site2 Delta-P (ms) Dist (cm) Edgar (m/s) Left Median Anti Sensory (2-3nd Digit) Wrist 2.5 57.5 Wrist 2-3nd Digit 2.5 14.0 56 Wrist 2.6 68.5 Wrist 2-3nd Digit 2.5 14.0 56 Right Median Anti Sensory (2-3nd Digit) Wrist 2.7 69.9 Wrist 2-3nd Digit 2.7 14.0 52 Wrist 2.7 78.9 Wrist 2-3nd Digit 2.7 14.0 52 Left Radial Anti Sensory (Base 1st Digit) Wrist 2.2 17.2 Wrist Base 1st Digit 2.2 0.0 Right Radial Anti Sensory (Base 1st Digit) Wrist 2.5 18.4 Wrist Base 1st Digit 2.5 0.0 Left Sup Fibular Anti Sensory (Ant Lat Mall) 14 cm 3.4 15.4 14 cm Ant Lat Mall 3.4 16.0 47 Right Sup Fibular Anti Sensory (Ant Lat Mall) 14 cm 2.9 17.6 14 cm Ant Lat Mall 2.9 16.0 55 Left Sural Anti Sensory (Lat Mall) Calf 3.3 6.1 Calf Lat Mall 3.3 16.0 48 Right Sural Anti Sensory (Lat Mall) Calf 3.5 6.9 Calf Lat Mall 3.5 16.0 46 Left Ulnar Anti Sensory (5th Digit) Wrist 2.5 60.1 Wrist 5th Digit 2.5 14.0 56 Right Ulnar Anti Sensory (5th Digit) Wrist 2.1 62.3 Wrist 5th Digit 2.1 14.0 67 Motor Summary Table Stim Site NR Onset (ms) O-P Amp (mV) Site1 Site2 Delta-0 (ms) Dist (cm) Edgar (m/s) Left Median Motor (Abd Poll Brev) Wrist 2.5 2.7 Elbow Wrist 4.5 26.0 58 Elbow 7.0 1.6 Right Median Motor (Abd Poll Brev) Wrist 3.1 1.7 Elbow Wrist 4.7 26.0 55 Elbow 7.8 2.5 Left Peroneal Motor (Vastus Med) Ankle 3.4 1.8 Popit Ankle 7.1 36.0 51 Popit 10.5 1.3 Right Peroneal Motor (Vastus Med) Ankle 3.6 2.7 Popit Ankle 7.2 35.0 49 Popit 10.8 1.5 Left Tibial Motor (Abd Davis Brev) Ankle 3.9 8.4 Knee Ankle 7.3 38.0 52 Knee 11.2 4.6 Right Tibial Motor (Abd Davis Brev) Ankle 3.8 2.0 Knee Ankle 6.6 36.0 55 Knee 10.4 1.6 Left Ulnar Motor (Abd Dig Minimi) Wrist 2.1 6.0 A Elbow Wrist 5.2 30.0 58 A Elbow 7.3 5.5 Right Ulnar Motor (Abd Dig Minimi) Wrist 2.6 5.8 A Elbow Wrist 4.7 27.0 57 A Elbow 7.3 4.7 F Wave Studies NR F-Lat (ms) L-R F-Lat (ms) Left Median (Mrkrs) (Abd Poll Brev) 26.46 0.01 Right Median (Mrkrs) (Abd Poll Brev) 26.45 0.01 Left Peroneal (Mrkrs) (EDB) 47.31 0.59 Right Peroneal (Mrkrs) (EDB) 46.72 0.59 Left Tibial (Mrkrs) (Abd Hallucis) 47.21 0.27 Right Tibial (Mrkrs) (Abd Hallucis) 47.48 0.27 Left Ulnar (Mrkrs) (Abd Dig Min) 26.02 0.27 Right Ulnar (Mrkrs) (Abd Dig Min) 26.28 0.27 EMG Side Muscle Nerve Root Ins Act Fibs Amp Dur Recrt Comment Right 1stDorInt Ulnar C8-T1 Nml Nml Nml Nml Nml Right Ext Indicis Radial (Post Int) C7-8 Nml Nml Nml Nml Nml Right Ext Digitorum Radial (Post Int) C7-8 Nml Nml Nml Nml Nml Right BrachioRad Radial C5-6 Nml Nml Nml Nml Nml Right PronatorTeres Median C6-7 Nml Nml Nml Nml Nml Right Abd Poll Brev Median C8-T1 Nml Nml Nml Nml Nml Right ABD Dig Min Ulnar C8-T1 Nml Nml Nml Nml Nml Right AntTibialis Dp Br Fibula
== END 2023-07-13 09:08 | disposition home or self-care (01) ==
LOC: ANHNEURO 09:09
PROVIDERS: PCP Nurse Practitioner Family; Visit Provider Nurse Practitioner Family
DX: R20.0 Anesthesia of skin (principal); R20.2 Paresthesia of skin
CPT/HCPCS: 95886; 95913

== ENCOUNTER 2024-03-09 01:08 | Day surgery (SDC) | payer OTHER, SELFPAY ==
[2024-02-24 11:17] VITALS: BMI 42.1
--- NOTE | 2024-03-08 15:28 | P.PNAN_ITS ---
Anes - Initial Pre Proc Eval Procedure: Operation Date: 03/09/24 10:30 Proposed Procedures p Screening Colonoscopy - Ketan Asif MD Date/Time: 03/08/24 15:28 Surgeon: Ketan Asif MD Pre Op Diagnosis: screening colon Patient Data Age: 48 Gender: F Height: 1.57 m Weight: 104.5 kg Allergies Allergy/AdvReac Type Severity Reaction Status Date / Time No Known Allergies Allergy Verified 03/09/24 09:03 Home Medications ?Medication ?Instructions ?Recorded ?Confirmed ?Type levocetirizine 5 mg tablet (Xyzal) 5 mg PO DAILY 06/03/21 03/09/24 History omeprazole 20 mg capsule,delayed 20 mg PO DAILY 06/03/21 03/09/24 History release rosuvastatin 20 mg tablet 20 mg PO DAILY #90 tabs 09/13/23 03/09/24 Rx levothyroxine 50 mcg tablet 50 mcg PO DAILY #90 tabs 01/07/24 03/09/24 Rx escitalopram oxalate 10 mg tablet 10 mg PO DAILY #30 tabs 03/03/24 03/09/24 Rx (Lexapro) Patient hx anesthesia problems: none Family hx anesthesia problems: none Results Review: All pre-operative results and documents have been reviewed as part of the pre- operative evaluation. [facility] Past Medical History Medical History (Updated 03/08/24 @ 15:29 by Preston Conway DO) GERD (gastroesophageal reflux disease) Migraine syndrome COVID-19 BMI 40.0-44.9, adult Family History Family History Father Hypertension Hyperlipidemia Respiratory disease COPD (chronic obstructive pulmonary disease) Mother H/O blood clots Sibling Diabetes mellitus Grandparent Alcoholism Other Brain cancer Social History Social History Smoking status: Never smoker Second hand tobacco smoke exposure: No Alcohol intake: current Drinks per week: 6 Alcohol use details: socially Substance use: current Substance use type: marijuana Other substance usage details: edible daily HS Lack of Transportation: No Lack of Food: Never True Current Housing: I Have Housing Concerned About Future Housing: No Difficulty Paying Gas/Electric Bills: No Difficulty Paying for Meds: No Currently Unemployed: No Education: High School Diploma/GED Difficulty w/ Childcare or Family Care: No Living arrangements: alone Occupation/Education: occupation 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 Informed Consent: The patient's anesthetic plan and its attendant risks and benefits were discussed with the patient/family/POA. Questions were solicited and answers provided to the satisfaction of the patient/family/POA.
[2024-03-09 09:04] VITALS: BP 117/70; PULSE 94; RESP 18; TEMP 36.1; O2SAT 98; BMI 41.5
[2024-03-09 09:09] LABS: BEDSIDEPREGUCG Negative (Negative)
[2024-03-09] MEDS: LACTATED RINGERS 1,000 ML 150 ML IV CONT (09:13)
--- NOTE | 2024-03-09 10:01 | PM.IMHP ---
H&P: HPI History of Present Illness Date/Time: 03/09/24 10:01 Chief Complaint: Screening colonoscopy Narrative: This is the patient's first colonoscopy. There are no GI symptoms and there is no family history of colorectal cancer. Review of Systems Review of Systems: All systems reviewed & are unremarkable except as noted in HPI and below PMFSH Past Medical History Medical History (Updated 03/09/24 @ 10:01 by Ketan Asif MD) GERD (gastroesophageal reflux disease) Migraine syndrome COVID-19 BMI 40.0-44.9, adult Family History Family History Father Hypertension Hyperlipidemia Respiratory disease COPD (chronic obstructive pulmonary disease) Mother H/O blood clots Sibling Diabetes mellitus Grandparent Alcoholism Other Brain cancer Social History Social History Smoking status: Never smoker Second hand tobacco smoke exposure: No Alcohol intake: current Drinks per week: 6 Alcohol use details: socially Substance use: current Substance use type: marijuana Other substance usage details: edible daily HS Lack of Transportation: No Lack of Food: Never True Current Housing: I Have Housing Concerned About Future Housing: No Difficulty Paying Gas/Electric Bills: No Difficulty Paying for Meds: No Currently Unemployed: No Education: High School Diploma/GED Difficulty w/ Childcare or Family Care: No Living arrangements: alone Occupation/Education: occupation 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 Gender identity (if verbalized by the patient): Female Spiritual care concerns: No Meds Home Medications and Allergies Home Medications ?Medication ?Instructions ?Recorded ?Confirmed ?Type levocetirizine 5 mg tablet (Xyzal) 5 mg PO DAILY 06/03/21 03/09/24 History omeprazole 20 mg capsule,delayed 20 mg PO DAILY 06/03/21 03/09/24 History release rosuvastatin 20 mg tablet 20 mg PO DAILY #90 tabs 09/13/23 03/09/24 Rx levothyroxine 50 mcg tablet 50 mcg PO DAILY #90 tabs 01/07/24 03/09/24 Rx escitalopram oxalate 10 mg tablet 10 mg PO DAILY #30 tabs 03/03/24 03/09/24 Rx (Lexapro) Allergies Allergy/AdvReac Type Severity Reaction Status Date / Time No Known Allergies Allergy Verified 03/09/24 09:03 Vital Signs Vital Signs - 24 hr 03/09/24 09:04 Temperature 97 F L Pulse Rate 94 Respiratory Rate 18 Blood Pressure 117/70 Pulse Oximetry 98 Oxygen Delivery Room Air Exam Const: General: cooperative and healthy appearing Resp: Effort & Inspection: normal respiratory effort and able to speak in complete sentences Auscultation: clear to auscultation bilaterally Cardio: Rate: regular rate Rhythm: regular rhythm GI: Inspection: normal to inspection GI Palp: No No hepatosplenomegaly present Auscultation: normal bowel sounds Rectal Exam: deferred Skin: General skin exam: normal color Psych: Appearance: grossly normal Mental Status: mental status grossly normal Assessment and Plan Assessment and plan (1) Encounter for screening colonoscopy: Code(s): Z12.11 - Encounter for screening for malignant neoplasm of colon Status: Acute Assessment and Plan: The patient is deemed a good candidate for the procedure. Consent signed. Will proceed.
[2024-03-09] MEDS: SIMETHICONE ORAL SUSPENSION 20 MG/0.3 ML 30 ML BOTTLE 0.6 ML IRRIGATION (10:28)
[2024-03-09 10:37] VITALS: BP 114/72; PULSE 83; RESP 17; O2SAT 94
[2024-03-09 10:47] VITALS: BP 116/69; PULSE 66; RESP 18; O2SAT 100
[2024-03-09 10:57] VITALS: BP 113/63; PULSE 61; RESP 16; O2SAT 100
--- OUTSIDE RECORDS SUMMARY | 2024-03-10 03:45 | XMS_ITS | Data Portability ---
Author Organization [facility] [place] Address [address] [place] [address] [place] [address] Care Team Providers Care Hop Farmer Name Role Phone FLAVIO JAMA Primary Care Provider [phone] Assessment Encounter Date Assessment Date Assessment LastModified by Organization Details LastModified Time 07/07/2021 07/07/2021 Annual gynecological exam performed. Patient will come back in a year unless there are new symptoms. [email or web address] Not available 07/07/2021 09:39:42 09/29/2022 09/29/2022 Annual gynecological exam performed. Patient will come back in a year unless there are new symptoms. Not available 09/29/2022 09:28:45 12/10/2023 12/10/2023 Annual gynecological exam performed. Patient will come back in a year unless there are new symptoms. [email or web address] Not available 11/24/2023 14:36:41 Plan of Treatment Reminders Order Date Submit Date Provider Last Modified By Organization Details Last Modified Time Details Appointments IUD INSERTION 2024 08:00A Gladys HEALY NP Not available Not available Not available Lab test, urine 2022 023 [email or web address] [address], [address], [place], [address], 10/22/2022 16:37:29 pap, IG + HR HPV - HPV regardles s but if HPV is positive need subtyping 16,18/45 2023 024 [facility] (Lab), [address], [place], [address], 12/16/2023 15:44:29 test, urine 2023 024 [email or web address] [place] [facility] [address], [place], [address], 01/25/2024 17:33:27 Referral None recorded. Procedures colonosco py screening (PROC) 2023 024 [facility], [id number], [place], [address], 12/10/2023 10:29:18 Surgeries None recorded. Imaging MAMMO, screening , bilateral 2022 023 [email or web address] [facility], [address], [place], [address], 10/14/2022 12:23:09 US, breast, unilatera l, w/ axilla 2022 023 [email or web address], [address], [place], [address], 10/14/2022 12:23:09 MAMMO, screening , digital, bilateral [address] [facility], [address], [place], [address], 12/17/2023 04:07:15 Medication Orders Prometriu m 100 mg capsule 2021 022 [email or web address] [id number], [address], [place], [place], [id number], 12/10/2023 09:27:41 Patient TargetsNo targets recorded. Patient InstructionsNo instructions recorded. Reason for Referral None Reported. 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 Shift in rosa m sugge stive of bacte rial vagin osis. Elect matilda loera debbie d by Lisa Herr , CT on 2021 at 11:37 AM ----- ----- ----- ----- ----- ----- ----- ----- ----- ----- ----- ----- ----- ----- ----- ----- ----- ---- HPV RESUL TS: HPV mRNA E6/E7 : Posit vidal - HPV mRNA Detec bella HPV GENOT YPE 16 (BESSIE) : Not Detec bella HPV GENOT YPE 18/45 (BESSIE) : Not Detec bella NOTE: This high risk HPV mRNA assay detec ts fourt een high- risk HPV types (16, 18, 31, 33, 35, 39, 45, 51, 52, 56, 58, 59, 66, 68) witho ut diffe renti ation . This assay can diffe renti ate HPV 16 from HPV 18/45 , but does not diffe renti ate betwe en HPV 18 and HPV 45. A negat vidal HPV 16, 18/45 genot ype assay resul t does not exclu de the possi bilit y of cytol ogic abnor malit ies or of futur e or under lying JASPER 1, JASPER 3 or cance r. COMME NT: Note: This speci men was revie wed by a Cytot echno logis t and/o r Patho logis t (as indic ated in this repor t) after evalu ation using the Thinp rep Imagi ng Syste m. CLINI ELENA INFOR MATIO N: Menst rual Statu s: LMP (if appli cable ): Clini elena Histo ry/Pr eviou s Pap: Type of Neopl pavithra (if appli cable ): Signi fican t Clini elena Findi ngs: Other Histo ry: Hormo agustin (if appli cable ): PAP EDUCA KATELYNN L NOTE: The Pap Test is a scree moon test with an inher ent false negat vidal rate. Liqui d-bas ed sampl ing may decre ase, but will not elimi kwan, false negat vidal resul ts. A negat vidal resul t does not precl ude the prese nce and/o r devel opmen t of disea se, since the prese nce of abnor mal cells in the sampl e depen ds on the locat ion of the lesio n and sampl ing techn ique. Peggy nued regul ar scree moon is the best metho d of cance r preve ntion . If repor bella cytol ogic findi ng do not corre late with physi elena and/o r histo rical findi ngs, furth er inves tigat ion is recom chary d, as clini kenyatta romano nted. 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 FINAL DIAGN OSIS: Negat vidal for Intra epith elial Janeth william or Edelmira amezquita (NIL) . Elect matilda loera debbie d by Augusto Peres am, CT on 2022 at 8:13 AM ----- ----- ----- ----- ----- ----- ----- ----- ----- ----- ----- ----- ----- ----- ----- ----- ----- ---- HPV RESUL TS: HPV mRNA E6/E7 : Posit vidal - HPV mRNA Detec bella HPV GENOT YPE 16 (BESSIE) : Not Detec bella HPV GENOT YPE 18/45 (BESSIE) : Not Detec bella NOTE: This high risk HPV mRNA assay detec ts fourt een high- risk HPV types (16, 18, 31, 33, 35, 39, 45, 51, 52, 56, 58, 59, 66, 68) witho ut diffe renti ation . This assay can diffe renti ate HPV 16 from HPV 18/45 , but does not diffe renti ate betwe en HPV 18 and HPV 45. A negat vidal HPV 16, 18/45 genot ype assay resul t does not exclu de the possi bilit y of cytol ogic abnor malit ies or of futur e or under lying JASPER 1, JASPER 3 or cance r. COMME NT: This speci men was revie wed by a Cytot echno logis t and/o r Patho logis t (as indic ated in this repor t) after evalu ation using the Thinp rep Imagi ng Syste m. CLINI ELENA INFOR MATIO N: Menst rual Statu s: LMP (if appli cable ): Clini elena Histo ry/Pr eviou s Pap: Type of Neopl pavithra (if appli cable ): Signi fican t Clini elena Findi ngs: Other Histo ry: Hormo agustin (if appli cable ): PAP EDUCA KATELYNN L NOTE: The Pap Test is a scree moon test with an inher ent false negat vidal rate. Liqui d-bas ed sampl ing may decre ase, but will not elimi kwan, false negat vidal resul ts. A negat vidal resul t does not precl ude the prese nce and/o r devel opmen t of disea se, since the prese nce of abnor mal cells in the sampl e depen ds on the locat ion of the lesio n and sampl ing techn ique. Peggy nued regul ar scree moon is the best metho d of cance r preve ntion . If repor bella cytol ogic findi ng do not corre late with physi elena and/o r histo rical findi ngs, furth er inves tigat ion is recom chary d, as clini kenyatta romano nted. Not Available [facility] (Lab) [address], [place], [address], 10/02/2022 12:20:41 10/23/19 23 10/22/2022 pregn rosa test, urine HCG negati ve Not Available [facility] [address], [place], [address], 10/22/2022 16:37:23 12/10/19 24 12/10/2023 IMAGE GUIDE D PAP AND HPV REGAR DLESS image guided Pap, HPV regardless of Pap result SEE RESULT S BELOW abnormal CASE REPOR T: Cytol ogy Gynec ologi elena Repor t Case: [id number] Autho ganesh g Provi jorge: Dermo dy, Nereyda , ANP, LEGAL OFFICER Colle cted: 12/09 1039 Order ing Locat ion: [place] Patho logjeffrey Recei elly: 12/11 0908 First Scree n: Adrianna Davis , [place] Patho logis t: Terry Nathan MD Speci men: Melva mustafa Pap - Image d, Cervi x STATE MENT OF ADEQU ACY: Satis facto ry for evalu ation Trans forma tion zone compo nent prese nt ----- ----- ----- ----- ----- ----- ----- ----- ----- ----- ----- ----- ----- ----- ----- ----- ----- ---- FINAL DIAGN OSIS: Epith elial Cell Abnor malit y, Squam ous Cell: Atypi elena Squam ous Cells of Undet ermin ed Signi kelley ce (ASC- US). Bacte anthony morph ologi kenyatta consi stent with Actin omyce s spp. Shift in rosa m sugge stive of bacte rial vagin osis. Elect matilda carcamo by Terry Nathan MD on 12/15 at 2:39 PM ----- ----- ----- ----- ----- ----- ----- ----- ----- ----- ----- ----- ----- ----- ----- ----- ----- ---- HPV RESUL TS: HPV mRNA E6/E7 : Posit vidal - HPV mRNA Detec bella HPV GENOT YPE 16 (BESSIE) : Not Detec bella HPV GENOT YPE 18/45 (BESSIE) : Not Detec bella NOTE: This high risk HPV mRNA assay detec ts fourt een high- risk HPV types (16, 18, 31, 33, 35, 39, 45, 51, 52, 56, 58, 59, 66, 68) witho ut diffe renti ation . This assay can diffe renti ate HPV 16 from HPV 18/45 , but does not diffe renti ate betwe en HPV 18 and HPV 45. A negat vidal HPV 16, 18/45 genot ype assay resul t does not exclu de the possi bilit y of cytol ogic abnor malit ies or of futur e or under lying JASPER 1, JASPER 3 or cance r. COMME NT: This speci men was revie wed by a Cytot echno logis t and/o r Patho logis t (as indic ated in this repor t) after evalu ation using the Thinp rep Imagi ng Syste m. CLINI ELENA INFOR MATIO N: Menst rual Statu s: LMP (if appli cable ): Clini elena Histo ry/Pr eviou s Pap: Type of Neopl pavithra (if appli cable ): Signi fican t Clini elena Findi ngs: Other Histo ry: Hormo agustin (if appli cable ): SUGGE STED FOLLO W-UP: Follo w up as warra nted, based on curre nt guide lines and indiv idual patie nt consi derat ions. Not Available [facility] (Lab) [address], [place], [address], 12/16/2023 15:44:29 01/25/20 24 01/31/2024 CERVI X/END OCERV IX cervical histology Negati ve normal Not Available [facility] ([facility]) [address] , [place], [address], 01/31/2024 11:55:13 01/25/20 24 01/31/2024 CERVI X/END OCERV IX endocervical brushing histology Negati ve normal Not Available [facility] ([facility]) [address] , [place], [address], 01/31/2024 11:55:13 01/25/20 24 01/31/2024 CERVI X/END OCERV IX results GROSS ING INFOR MATIO N: (B1) CERVI X Recei elly in forma omer on a SOFT BX brush is a 0.7 cm aggre gate of clear -to-m ilky mucoi d/fib rinou s mater ial, total ly submi tted. B1 DIAGN OSIS: (B1) CERVI X Benig n ectoc ervic al tissu e. Trans forma tion zone mucos a not prese nt. No intra epith elial lesio n. UNSP ABNOR MAL CYTOL OG FINDI NGS IN SPECM N FROM CERVI X UTERI (R87. 619) GROSS ING INFOR MATIO N: (A1) ENDOC ERVIX Recei elly in forma omer on a ECC brush is a 0.6 cm aggre gate of pink- tinge d mucoi d/fib rinou s mater ial, total ly submi tted. A1 DIAGN OSIS: (A1) ENDOC ERVIX Benig n ectoc ervic al tissu e. Trans forma tion zone mucos a not prese nt. No intra epith elial lesio n. UNSP ABNOR MAL CYTOL OG FINDI NGS IN SPECM N FROM CERVI X UTERI (R87. 619) Not Available [facility] ([facility]) [address] [facility], [place], [address], 01/31/2024 11:55:13 01/25/20 24 01/25/2024 pregn rosa test, urine HCG negati ve Not Available [facility] [address], [place], [address], 01/25/2024 17:33:19 10/01/19 22 09/30/2021 MAMMO , scree moon, bilat eral No observ ation record ed. [email or web address] [facility] [address], [place], [address], 10/21/2021 15:21:55 11/07/19 22 11/05/2021 MAMMO , diagn ostic , unila teral No observ ation record ed. [email or web address] [facility] [address], [place], [address], 05/20/2022 19:07:27 11/07/19 22 11/05/2021 MAMMO , diagn ostic , unila teral No observ ation record ed. [email or web address] [facility] [address], [place], [address], 06/25/2022 11:21:44 12/06/19 22 11/05/2021 mammo gram, follo w up* No observ ation record ed. [facility] [address], [place], [address], 12/15/2021 15:01:36 03/18/19 24 03/18/2023 MAMMO , scree moon, bilat eral No observ ation record ed. MOON [facility] [address], [place], [address], 03/24/2023 11:55:45 Result Notes None recorded. Problems Name Problem SNOMED Code Status Onset Date Resolution Date Notes Provider Name and Address Organization Details Recorded Time Atypical squamous cells of undeterm ined signific ance on cervical Papanico laou smear 009907227 Completed 201607/07/2021 Atyp squam cell of undet signfc cyto smr crvx (ASC-US); Practice ID: [id number] Nelly brown [facility] 2 09:15:[address] Concept Completed 201607/07/2021 Encntr for practice performance manager exam (general) (routine) w/o abn findings; Practice ID: [id number] Nelly brown [facility] 2 09:15:44 Screenin g for malignan t neoplasm of rectum Completed 201607/07/2021 Encounter for screening for malignant neoplasm of rectum;Pr actice ID: [id number] Nelly brown [facility] 2 09:15:44 Speciali matilde medical examinat ion Completed 201107/07/2021 Gynecolog ical Examinati on;Record ed Elsewhere : No Locati on: [facility] So urce: EHR Chron ic: N Practic e ID: 0001 Bill able Time: 11:30:[address] [facility] 2 09:15:44 Screenin g for malignan t neoplasm of cervix Completed 201107/07/2021 Screening for malignant neoplasms of the cervix;Re corded Elsewhere : No Locati on: [facility] So urce: EHR Chron ic: N Practic e ID: 0001 Bill able Time: 11:30:[address] [facility] 2 09:15:44 Insertio n of intraute rine contrace ptive device Completed 201607/07/2021 Encounter for insertion of intrauter ine contracep tive device;Re corded Elsewhere : No Locati on: [facility] So urce: EHR Chron ic: N Practic e ID: 0001 Bill able Time: 04:15:[address] [facility] [address] 09:15:[address] Concept Completed 201507/07/2021 Encntr for general adult medical exam w/o abnormal findings; Recorded Elsewhere : No Locati on: [facility] So urce: EHR Chron ic: N Practic e ID: 0001 Bill able Time: 03:30:[address] [facility] 2 09:15:44 Adult health examinat ion Completed 201407/07/2021 ROUTINE MEDICAL EXAM;Niels rded Elsewhere : No Locati on: [facility] So urce: EHR Chron ic: N Practic e ID: 0001 Bill able Time: 03:30:[address] [facility] 2 09:15:44 Removal of intraute rine device Completed 201107/07/2021 REMOVAL OF IUD;Recor ded Elsewhere : No Locati on: [facility] So urce: EHR Chron ic: N Practic e ID: 0001 Bill able Time: 11:30:[address] [facility] 2 09:15:44 Cytologi c finding [id number] Completed 201407/07/2021 Papanicol aou smear of cervix with low grade squamous intraepit helial lesion (LGSIL);R ecorded Elsewhere : No Locati on: [facility] So urce: EHR Chron ic: N Practic e ID: 0001 Bill able Time: 03:30:[address] [facility] 2 09:15:44 Contrace ptive sheath status [id number] Completed 201607/07/2021 IUD follow up;Record ed Elsewhere : No Locati on: [facility] So urce: EHR Chron ic: N Practic e ID: 0001 Bill able Time: 04:15:[address] [facility] 2 09:15:44 Pregnanc y test negative [id number] Completed 201507/07/2021 Encounter for test, result negative; Recorded Elsewhere : No Locati on: [facility] So urce: EHR Chron ic: N Practic e ID: 0001 Bill able Time: 03:30:[address] [facility] 2 09:15:44 Problem Notes None recorded. Procedures Surgical History Date Name Laterality Status Provider Name and Address Organization Details Recorded Time 01/25/20 24 Colposcopy completed SETH TOLBERT MD [address], [place], [address], [facility] 01/25/2024 17:28:50 12/10/19 Date of Last Pap Smear completed Irena Tran [facility] 01/25/2024 16:27:54 03/18/19 24 Date of Last Mammogram completed Nola Martínez [facility] 12/10/2023 09:29:27 10/23/19 23 Colposcopy completed Stacey Morales, [facility] [address], [place], [address], [facility] 10/22/2022 16:57:42 11/21/19 16 Colposcopy completed Nelly Kumari [facility] 07/07/2021 09:48:43 Other completed Stacey Morales, [facility] [address], [place], [address], [facility] 09/29/2022 09:36:59 LEEP completed Carolina Ryan [facility] 04/12/2020 14:21:50 Imaging Results Imaging Date Name Status LastModified by Organiz ation Details LastModified Time 09/30/2021 MAMMO, screening, bilateral completed [email or web address] [facility] [address], [place], [address], 10/21/2021 15:21:55 11/05/2021 MAMMO, diagnostic, unilateral completed [email or web address] [facility] [address], [place], [address], 05/20/2022 19:07:27 11/05/2021 MAMMO, diagnostic, unilateral completed [email or web address] [facility] [address], [place], [address], 06/25/2022 11:21:44 11/05/2021 mammogram, follow up* completed [facility] [address], [place], [address], 12/15/2021 15:01:36 03/18/2023 MAMMO, screening, bilateral completed [facility] [address], [place], [address], 03/24/2023 11:55:45 Procedure Notes None recorded. Medical Equipment None Reported. Allergies Allergen ID Allergen Name Allergen Category Reaction Reaction Severity Criticality Documentation Date Start Date Code Code System Note Provider Name and Address Organization Details Recorded Time 11478 latex environme nt,medica tion Not available Not available Not available 02/02/2020 56192 91 RxNorm Comme nt: [facility]; Not Available [facility], [facility] 14:20:36 Medications Name Sig Start Date Stop Date Status Note LastModified by Organization Details LastModified Time id now influenza a & b 2 test kit TEST DIRECTED TODAY 09/29 completed Not Available Not Available Not Available cyclobenzap rine 10 mg tablet 09/29 completed Not Available Not Available Not Available Mirena 21 mcg/24 hr (up to 8 years) 52 mg intrauterin e device Take by intrauter ine route. active Not Available Not Available No t Available prednisone 10 mg tablet TAKE 1 TABLET BY MOUTH DAILY 07/07 completed Not Available Not Available Not Available trazodone 50 mg tablet TAKE 1 TABLET BY MOUTH EVERY NIGHT AT BEDTIME 09/29 completed Not Available Not Available Not Available azithromyci n 250 mg tablet TAKE 2 TABLETS BY MOUTH FOR 1 DAY THEN TAKE 1 TABLET BY MOUTH DAILY FOR 4 DAYS 09/29 completed Not Available Not Available Not Available ofloxacin 0.3 % eye drops INSTILL 1 DROP IN THE RIGHT EYE FOUR TIMES DAILY FOR 7 DAYS 07/07 completed Not Available Not Available Not Available benzonatate 200 mg capsule TAKE 1 CAPSULE BY MOUTH 2 TO 3 TIMES PER DAY NEEDED FOR COUGH 07/07 completed Not Available Not Available Not Available metronidazo le 0.75 % (37.5 mg/5 gram) vaginal gel 09/29 completed Not Available Not Available Not Available prednisone 20 mg tablet TAKE 3 TABLETS BY MOUTH EVERY DAY FOR 10 DAYS 07/07 completed Not Available Not Available Not Available prednisone 5 mg tablet TAKE 1 TABLET BY MOUTH DAILY IN THE MORNING 09/29 completed Not Available Not Available Not Available clobetasol 0.05 % topical cream APPLY TO RASH ON ARMS AND LEGS TWICE DAILY FOR 4 WEEKS 01/24 completed Not Available Not Available Not Available metronidazo le 500 mg tablet TAKE 1 TABLET BY MOUTH TWICE DAILY FOR 7 DAYS 01/24 completed Not Available Not Available Not Available ciprofloxac in 500 mg tablet TAKE 1 TABLET BY MOUTH EVERY 12 HOURS FOR 3 DAYS 07/07 completed Not Available Not Available Not Available tramadol 50 mg tablet TAKE 1 TO 2 TABLETS BY MOUTH EVERY 6 HOURS NEEDED FOR PAIN 07/07 completed Not Available Not Available Not Available levothyroxi ne 25 mcg tablet TAKE 1 TABLET BY MOUTH DAILY 09/29 completed Not Available Not Available Not Available [facility]SC Levothyroxi ne Sodium 50 mcg tablet 09/29 completed Not Available Not Available Not Available amoxicillin 875 mg tablet TAKE 1 TABLET BY MOUTH TWICE DAILY 07/07 completed Not Available Not Available Not Available levothyroxi ne 50 mcg tablet TAKE 1 TABLET BY MOUTH DAILY active Not Available Not Available No t Available prednisone 50 mg tablet TAKE 1 TABLET BY MOUTH ONCE DAILY FOR 5 DAYS 09/29 completed Not Available Not Available Not Available lidocaine 5 % topical patch 07/07 completed Not Available Not Available Not Available mometasone 50 mcg/actuati on nasal spray SHAKE LIQUID AND USE 2 SPRAYS IN EACH NOSTRIL TWICE DAILY 09/29 completed Not Available Not Available Not Available montelukast 10 mg tablet TAKE 1 TABLET BY MOUTH EVERY DAY 12/09 completed Not Available Not Available Not Available azelastine 137 mcg (0.1 %) nasal spray USE 2 SPRAYS IN EACH NOSTRIL TWICE DAILY 12/09 completed Not Available Not Available Not Available cefdinir 300 mg capsule TAKE 1 CAPSULE BY MOUTH EVERY 12 HOURS FOR 10 DAYS 07/07 completed Not Available Not Available Not Available doxycycline hyclate 100 mg tablet TAKE 1 TABLET BY MOUTH DAILY 11/23 completed Not Available Not Available Not Available naproxen 500 mg tablet 07/07 completed Not Available Not Available Not Available diazepam 5 mg tablet TAKE 1 TABLET BY MOUTH TWICE DAILY NEEDED FOR MUSCLE SPASM 07/07 completed Not Available Not Available Not Available progesteron e micronized 100 mg capsule TAKE 1 CAPSULE BY MOUTH EVERY DAY 12/09 completed Not Available Not Available Not Available amoxicillin 875 mg-potassiu m clavulanate 125 mg tablet TAKE 1 TABLET BY MOUTH TWICE DAILY 09/29 completed Not Available Not Available Not Available oxycodone 5 mg tablet TAKE 1 TABLET BY MOUTH EVERY 12 HOURS NEEDED FOR PAIN 09/29 completed Not Available Not Available Not Available escitalopra m 10 mg tablet TAKE 1 TABLET BY MOUTH DAILY active Not Available Not Available No t Available rosuvastati n 20 mg tablet TAKE 1 TABLET BY MOUTH DAILY active Not Available Not Available No t Available azelastine 07/07 completed Not Available Not Available Not Available Zyrtec as needed active Not Available Not Lia ilable Not Available Xyzal 5 mg tablet active Not Available Not Available Not Available Acid Clinic Assistant (omeprazole ) active Not Available Not Available Not Available ID NOW COVID-19 Test Kit TEST DIRECTED TODAY 09/29 completed Not Available Not Available Not Available Vitals Date Recorded Body height Body mass index (BMI) Body weight Systolic blood pressure Diastolic blood pressure Provider Name and Address Organization Details Last Updated DateTime 07/07/2021 158.75 cm 44.3 kg/m2 060166.7 2 g 112 mm[Hg] 68 mm[Hg] Nelly Kumari [facility] 2 09:44:48 Date Recorded Body height Body mass index (BMI) Body weight Systolic blood pressure Diastolic blood pressure Provider Name and Address Organization Details Last Updated DateTime 09/29/2022 158.75 cm 43.7 kg/m2 334128.9 5 g 120 mm[Hg] 82 mm[Hg] Krysta [facility] 3 09:29:13 Date Recorded Body height Body mass index (BMI) Body weight Systolic blood pressure Diastolic blood pressure Provider Name and Address Organization Details Last Updated DateTime 10/22/2022 158.75 cm 43.7 kg/m2 779998.9 5 g 129 mm[Hg] 71 mm[Hg] Krysta Jacobs [facility] 3 16:35:37 Date Recorded Body height Body mass index (BMI) Body weight Systolic blood pressure Diastolic blood pressure Provider Name and Address Organization Details Last Updated DateTime 12/10/2023 158.75 cm 43 kg/m2 655679.5 8 g 118 mm[Hg] 76 mm[Hg] Nola Martínez [facility] 4 09:26:46 Date Recorded Body height Body mass index (BMI) Body weight Systolic blood pressure Diastolic blood pressure Provider Name and Address Organization Details Last Updated DateTime 01/25/2024 158.75 cm 42.1 kg/m2 003773.6 1 g 122 mm[Hg] 70 mm[Hg] Irena Tran [facility] 4 17:10:35 Social History Question Answer Notes LastModified by Organizat ion Details LastModified Time Do You Have An Advance Directive? No Information n ot available 07/07/2021 What Is Your Level Of Alcohol Consumption? Occasional Information not available 07/07/2021 How Many Years Have You Consumed Alcohol? 20 Information not available 07/07/2021 Are You Blind Or Do You Have Difficulty Seeing? No Information n ot available 07/07/2021 What Is Your Level Of Caffeine Consumption? Occasional Information not available 07/07/2021 How Much Tobacco Do You Chew? None Information not available 07/07/2021 In The 14 Days Before Symptom Onset, Have You Had Close Contact With A Laboratory-confirm ed COVID-19 While That Case Was Ill? No Information n ot available 07/07/2021 In The 14 Days Before Symptom Onset, Have You Had Close Contact With A Person Who Is Under Investigation For COVID-19 While That Person Was Ill? No Information not available 07/07/2021 Have You Been To An Area Known To Be High Risk For COVID-19? No Information not available 07/07/2021 Are You Deaf Or Do You Have Serious Difficulty Hearing? No Information not available 07/07/2021 What Type Of Diet Are You Following? REGULAR Information n ot available 07/07/2021 What Is The Highest Grade Or Level Of School You Have Completed Or The Highest Degree You Have Received? 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 No Information not available 07/07/2021 Do You Use Protection During Sex? No Information not available 07/07/2021 Do You Use Your Seat Belt Or Car Seat Routinely? Yes Information not available 09/29/2022 Do You Have Smoke And Carbon Monoxide Detectors In Your Home? Yes Information not available 07/07/2021 How Much Tobacco Do You Smoke? No Information not available 07/07/2021 Do You Feel Stressed (tense, Restless, Nervous, Or Anxious, Or Unable To Sleep At Night)? [id number] Information not available 07/07/2021 Do You Use Any Illicit Or Recreational Drugs? No Information not available 07/07/2021 Do You Use Sunscreen Routinely? Yes Information not available 07/07/2021 Have You Used IV Drugs? No Information not available 07/07/2021 Sex: Unknown Functional Status Question Answer Note LastModified by Organizat ion Details LastModified Time Do you have difficulty walking or climbing stairs? No [email or web address] Information not available 10/22/2022 Are you able to walk? YESWOREST Information not available 07/07/2021 Are you able to care for yourself? Yes [email or web address] Information not available 10/22/2022 Do you have difficulty dressing or bathing? No [email or web address] Information not available 10/22/2022 What is your exercise level? None Information not available 07/07/2021 Mental Status None recorded. Family History Relationship Description Onset Age of this Age Resolved Age Notes LastModified by Organization Details LastModified Time Paternal Uncle History of cancer metastatic to brain [email or web address] Not available 2023 16:54:41 Father Hypertensive disorder [email or web address] Not available 2020 14:21:33 Brother Hypertensive disorder [email or web address] Not available 2020 14:21:33 Brother Diabetes mellitus [email or web address] Not available 2020 14:21:43 Mother Diabetes mellitus [email or web address] Not available 2020 14:21:43 Medical History Condition Response History of abnormal pap Y Thyroid Problems Y High Cholesterol Y Gynecological History Statement/Question Response Abnormal Pap Y Date of Last Mammogram 03/18/2023 On BCP's at Conception? N N STIs/STDs Y HPV Vaccine N Colposcopy 11/21/2015 Current Control Method IUD Age at First Child 18 Sexually Active? Y Menses Monthly N Age of first menstrual cycle 12 Date of Last Pap Smear 12/10/2023 Sexual Problems? N Desired Control Method Unknown LMP Unknown N Obstetrics History GPAL:G 1 P 0 0 0 1 Type Value Living 1 Total 1 Past Encounters Encounter ID Performer Location Encounter Start Date Encounter Closed Date Diagnosis/Indication Diagnosis SNOMED-CT Code Diagnosis ICD10 Code Diagnosis Note [id number] Stacey Morales [facility] [address],[facility] [place] [address] 04/13/2020 10:17:21 04/13/2020 10:41:32 Gynecologic examination 40308455 Z01.419 Suggested Calcium with Vitamin D 1200-1500m g daily. Patient advised to get an annual flu shot in the fall and she could obtain at [facility] or [facility]. Also to obtain TDap vaccinatio n if you have not had one in the last 10 years. Recommend yearly mammograms . Encouraged monthly self breast exams. Encourage safe sexual practices, to use condoms and limit partners if not already in a monogamous relationsh ip. Engage in daily exercise of low impact aerobic exercise 45-60 minutes 4-5 times weekly. Avoid tobacco and illicit drugs as well as using moderation with alcohol intake less than 1-2 8 oz beverages daily. This lifestyle behavior pattern will lead to less health conditions and longer life span. If BMI greater than 25 weight watchers or dietary consult advised. All questions have been answered. Patient appears to understand informatio n, but if you have any questions please call or respond to this email. no issues or concerns Pap/hpv updated Mirena placed 04/08/2016. [id number] Stacey Morales [facility] [address] [address] 07/07/2021 09:32:55 07/07/2021 10:20:18 Gynecologic examination 88961965 Z01.419 Suggested Calcium with Vitamin D 1200-1500m g daily. Patient advised to get an annual flu shot in the fall and she could obtain at [facility] or [facility] care clinic. Also to obtain TDap vaccinatio n if you have not had one in the last 10 years. Recommend yearly mammograms . Encouraged monthly self breast exams. Encourage safe sexual practices, to use condoms and limit partners if not already in a monogamous relationsh ip. Engage in daily exercise of low impact aerobic exercise 45-60 minutes 4-5 times weekly. Avoid tobacco and illicit drugs as well as using moderation with alcohol intake less than 1-2 8 oz beverages daily. This lifestyle behavior pattern will lead to less health conditions and longer life span. If BMI greater than 25 weight watchers or dietary consult advised. All questions have been answered. Patient appears to understand informatio n, but if you have any questions please call or respond to this email. Pap/hpvSTD Screen declinedGe netic Screen discussedC olon Screen discussedD exa Screen naRoutine Labs UTD PCPMammo orderedMir noah placed 04/08/2016. A Mirena IUD prevents for up to 7 years, and also helps with heavy periods for up to 5 years in women who choose an IUD for control. Night sweats 87939746 R6 1 Trial of prometrium nights Counseled on medication R/B's, Most common side effects, & use. [place]. [id number] William Banda MD [facility] [address] [place] [address] 02/17/2021 16:06:56 02/18/2021 10:06:09 Urinary symptoms [id number] R39.9 [id number] Stacey Morales [facility] [address] [place] [address] 09/29/2022 09:02:24 09/29/2022 09:55:04 Gynecologic examination 59410173 Z01.419 Z11.51 Suggested Calcium with Vitamin D 1200-1500m g daily. Patient advised to get an annual flu shot in the fall and she could obtain at [facility] or [facility] care clinic. Also to obtain TDap vaccinatio n if you have not had one in the last 10 years. Recommend yearly mammograms . Encouraged monthly self breast exams. Encourage safe sexual practices, to use condoms and limit partners if not already in a monogamous relationsh ip. Engage in daily exercise of low impact aerobic exercise 45-60 minutes 4-5 times weekly. Avoid tobacco and illicit drugs as well as using moderation with alcohol intake less than 1-2 8 oz beverages daily. This lifestyle behavior pattern will lead to less health conditions and longer life span. If BMI greater than 25 weight watchers or dietary consult advised. All questions have been answered. Patient appears to understand informatio n, but if you have any questions please call or respond to this email. Pap/hpv sentSTD Screen declinedGe netic Screen discussedC olon Screen discussedD exa Screen naRcox northine Labs UTD PCPMammo orderedMir noah placed 04/08/2016. A Mirena IUD prevents for up to 8 years, and also helps with heavy periods for up to 5 years in women who choose an IUD for control. Screening mammography 24 658665 Z12.31 N63.20 [id number] Stacey Morales , [facility] [address] [address] 10/22/2022 16:14:07 10/22/2022 17:08:34 Screening procedure 48552936 Z13.9 Human rolan llomavirus deoxyribonucleic acid detected, high risk on cervical specimen 671281975 R87.810 Today we decided to simply repeat paphpv testing x 1yrHer exam on colposcope appears uneventful .There is some scar tissue from previous Leep which could inhibit accuracy of this exam which was no changes since 2020. Will continue to monitor at this time. See procedure notes.Post -procedure instructio ns reviewed with understand ing verbalized .Will contact with results & next steps in plan of care. Counseled on Pap/HPV guidelines /Testing/R esults with understand ing verbalized .All questions answered to patient satisfacti on. Booklet & additional resources regarding pap smear/HPV/ Pap results given. [email or web address] [email or web address].cancer.g ov/types/c ervical/un derstandin g-abnormal -hpv-and-p ap-test-re sults/unde rstanding- cervical-c marino.pdf [id number] Nola Martínez [facility] [address] [address] 12/10/2023 09:18:57 12/10/2023 10:19:35 Gynecologic examination 40387515 Z01.419 Annual gynecologi elena exam performed. Patient will come back in a year unless there are new symptoms. Suggest Calcium with Vitamin D if not eating in diet. Patient advised to get annual flu shot. Recommend yearly physicals and perform monthly breast exams. Genetic testing is available for patients with family history of cancer. Engage in safe sexual practices, use condoms. Encouraged to have daily exercise. Avoid tobacco and illicit drugs, moderation of alcohol. If BMI greater than 25 dietary consult advised. If you have any questions please call or email. mammogram- Due in March 2024 - pt to schedule annual mammogram colon cancer screening - DUE - GI referral for [facility] for colonoscop y DEXA scan- n/a Pap smear- pap w/ hpv collected (previous pap smear result was HPV positive in 2022) laboratory evaluation - PCP STI testing - declined Contracept ion care management 613744496 Z30.9 Happy with Mirena IUD, expires 04/08/24.RT O in March 2024 for IUD removal and reinsertio n. Screening mammography 24 481795 Z12.31 Screening colonoscopy 44 5026513 Z12.11 [id number] SETH TOLBERT MD [facility] [address] [address] 01/25/2024 16:53:07 01/25/2024 18:39:34 Atypical squamous cells of undetermined significance on cervical Papanicolaou smear 415097964 R87.610 - colposcopy performed without issue- will follow up on results as available- discussed HPV vaccine (may not be covered by insurance due to age) vs Papillex Human rolan lloma virus infection 032811815 B97.7 Screening procedure 2012 5006 Z13.9 Health Concerns Section Related Observation LastModified by Organization Detai ls LastModified Time None Recorded Concern Status LastModified by Organization Details LastModified Time None Recorded Advance Directives Directive N: Payers Encounter Date Sequence Insurance Name Policy Number Policy Fu Covered Member ID Fu Member ID Guarantor Name 07/07/2021 1 [facility] [id number] Shauna Ortiz [id number] 1 Shauna Ortiz 09/29/2022 1 [facility] [id number] Shauna Ortiz [id number] 1 Shauna Ortiz 10/22/2022 1 [facility] [id number] Shauna Ortiz [id number] 1 Shauna Ortiz 12/10/2023 1 [facility] [id number] Shauna Ortiz [id number] 1 Shauna Ortiz 01/25/2024 1 [facility] [id number] Shauna Ortiz [id number] 1 Shauna Ortiz Notes Date Note Type Note Provider Name and Address Organization Details Recorded Time 07/07/2021 text/html Annual GYNReport ed bypatient.Menstrua l cycle:Normal menses Urinary symptoms:No hematuria; No incontinence Vulva:No genital lesion Vagina:Normal vaginal discharge Breast:No breast pain; No breast lump; No nipple discharge Current Contraception:Sati sfied with current contraception; Monogamous relationship; Intrauterine device (iud) Sexual complaints:No sexual complaints; No pain during intercourse; Normal libido Menopausal Symptoms:Normal vaginal lubrication;Insomn ia due to night sweats Psychological symptoms:No depression; No anxiety; No PMDD Preventive measures:Encourage self breast examination; Encourage regular exercise; Encourage no tobacco use; Encourage regular mammograms starting age 40; Followed with Q3 year pap smear and high risk HPV typing; Needs to schedule mammogram; Needs to schedule colonoscopy Stacey Morales, [facility]- [address], [place], [address], [facility] 07/07/2021 10:00:24 09/29/2022 text/html Annual GYNReport ed bypatient.History: no gynecologic complaints Menstrual cycle:Normal menses (Amenorrheic on IUD) Urinary symptoms:No hematuria; No incontinence Vulva:No genital lesion Vagina:Normal vaginal discharge Breast:No breast pain; No breast lump; No nipple discharge Sexual complaints:No sexual complaints; No pain during intercourse; Normal libido Menopausal Symptoms:No menopausal symptoms; Normal vaginal lubrication Psychological symptoms:No depression; No anxiety; No PMDD Preventive measures:Encourage self breast examination; Encourage regular exercise; Encourage no tobacco use; Encourage regular mammograms starting age 40; Followed with yearly pap smears; History of abnormal pap smear/cervical dysplasia; Needs to schedule mammogram Stacey Morales [facility] [address], [place], [address], [facility] 09/29/2022 09:52:27 10/22/2022 text/html Here today for colposcopy for +HPV on pap 2022. Stacey Morales [facility] [address], [place], [address], [facility] 10/22/2022 17:00:57 12/10/2023 text/html Patient presents for annual well woman exam. Patient denies concerns today. Doing well with Mirena IUD, no cycles. Patient requests removal and reinsertion when IUD expires in 2024. Nola brown [facility] 12/10/2023 10:20:08 12/10/2023 text/html Annual GYNReport ed bypatient.History: no gynecologic complaints Menstrual cycle:IUD - no cycles Urinary symptoms:No hematuria; No incontinence Vulva:No genital lesion Vagina:Normal vaginal discharge Breast:No breast pain; No breast lump; No nipple discharge Current Contraception:Sati sfied with current contraception; Intrauterine device (iud) Sexual complaints:No sexual complaints; No pain during intercourse; Normal libido Menopausal Symptoms:No menopausal symptoms; Normal vaginal lubrication Psychological symptoms:No depression; No anxiety; No PMDD Preventive measures:Encourage self breast examination; Encourage regular exercise; Encourage no tobacco use; Encourage regular mammograms starting age 40; Followed with yearly pap smears; History of abnormal pap smear/cervical dysplasia; Mammogram performed within the past year; Needs to schedule colonoscopy Nola brown [facility] 12/10/2023 10:20:08 01/25/2024 text/html Presents for colposcopy indicated for ASCUS, +HPV pap smear. Hx of persistent +HPV pap smear. SETH TOLBERT MD [address], [place], [address], [facility] 01/25/2024 18:28:58 OBGyn Episode Ob Episode Information Episode Created Date Number of Fetuses Patient Bloodtype Patient rh Status Prepregnancy Weight lbs Domestic Partner Domestic Partner Phone Father Name Journeyman Molder Status 04/12/19 21 1 CLOSED Fetus Data First Name Last Name Admitted to NICU Weight (g) Sex Living Outcome Pediatric Complications Fetus ID Race Codes Race Delivery Type Full Term [id number] Vaginal Delivery Seferino Calculation Initial Seferino Date Initial Exam Date Initial Exam Provider Initial Ultrasound Date Last Menstrual Period Date Ultra Sound Weeks Gestation 0 Eighteen To Twenty Week Seferino Update Ultra Sound Date Fundal Height At Umbil Quickening Date Ultra Sound Latest Weeks Gestation Final Seferino Confirmed By Final Seferino Confirmed Date Final Seferino Date Ultra Sound Latest Days Gestation 0 0 Menstrual History Last Menstrual Date Menses Monthly On Bcp Conception Prior Menses Frequency Hcg Plus Date Menarche Onset Age Delivery Information Delivery Date Delivery Type Labor Anesthesia Weeks Gestation Incision Type Labor Labor Length Hrs Delivered By Post Complications Tubal Sterilization Discharge Date Comments 5 Discharge Information Feeding Method Contraceptive Method Maternal HG B and HCT Levels
== END 2024-03-09 11:06 | disposition home or self-care (01) ==
PROVIDERS: Anesthesiology; PCP Family Medicine; Visit Provider Internal Medicine Gastroenterology
PROC: 0DJD8ZZ Inspection of Lower Intestinal Tract, Via Natural or Artificial Opening Endoscopic (ICD-10-PCS; CPT 45378; principal; 2024-03-09 10:30)
DX: Z12.11 Encounter for screening for malignant neoplasm of colon (principal); F12.90 Cannabis use, unspecified, uncomplicated; E66.01 Morbid (severe) obesity due to excess calories; Z68.41 Body mass index [BMI] 40.0-44.9, adult
CPT/HCPCS: 45378; J1596; J2003; J2704; J7120

== ENCOUNTER 2024-07-21 10:47 | Outpatient (CLI) | payer OTHER, SELFPAY ==
--- NOTE | ~2024-07-21 | MM_ITS ---
EXAMINATION: MM screening [facility] BI w dru INDICATION: Asymptomatic, referred for screening mammogram COMPARISON: 03/18/2023 through 09/03/2014 TECHNIQUE: Digital Breast Tomosynthesis CC, MLO views of Both breasts were obtained with computer-ai ded detection to assist in interpretation of the study. FINDINGS: There are scattered areas of fibroglandular density. There is a mass with irregular margins in the outer central left breast centered at 5 cm posterior t o the nipple which appears larger in the interval. Elsewhere, there are no mammographic features of malignancy. IMPRESSION: 1. Left breast Mass. 2. No evidence of malignancy in the Right breast. RECOMMENDATION: Left breast Diagnostic mammogram with true lateral, appropriate spot compression views and an ultraso und. BI-RADS 0, INCOMPLETE, NEEDS ADDITIONAL IMAGING EVALUATION Reviewed, dictated and finalized at location B. IMPRESSION: 1. Left breast Mass. 2. No evidence of malignancy in the Right breast. RECOMMENDATION: Left breast Diagnostic mammogram with true lateral, appropriate spot compressio n views and an ultrasound. BI-RADS 0, INCOMPLETE, NEEDS ADDITIONAL IMAGING EVALUATION
== END 2024-07-21 10:48 | disposition home or self-care (01) ==
LOC: MICIMG 10:49
PROVIDERS: PCP Family Medicine; Visit Provider Student in an Organized Health Care Education/Training Program
DX: Z12.31 Encounter for screening mammogram for malignant neoplasm of breast (principal); R92.8 Other abnormal and inconclusive findings on diagnostic imaging of breast
CPT/HCPCS: 77063; 77067

== ENCOUNTER 2024-08-15 09:15 | Outpatient (CLI) | payer OTHER, SELFPAY ==
--- NOTE | ~2024-08-15 | MMUS_ITS ---
EXAMINATION: MM diagnostic johnathan LT w dru, US breast LT limited HISTORY: Left breast mass TECHNIQUE: Additional 3-D tomosynthesis images of the left breast were performed and synthetic 2-D im ages were generated. CAD analysis was submitted and interpreted. High resolution limited left breast ultrasound was performed. COMPARISON: 07/21/2024, 03/18/2023, 11/05/2021 BREAST PARENCHYMAL COMPOSITION:Not Dense. There are scattered areas of fibroglandular density. FINDINGS: MAMMOGRAPHIC FINDINGS: Spot compression views demonstrate a low-density 6 mm mass at the outer left breast with probable fat ty hilum, most likely intramammary lymph node. No other mass lesion or distortion seen. ULTRASOUND: There is a probable reniform lymph node with prominent fatty hilum at the 2:00 position left breast, 10 cm from the nipple. No other sonographic abnormality seen. IMPRESSION: No evidence for malignancy. Findings compatible with benign lymph node at the outer left breast. BI-RADS Category 2: Benign finding(s). Reviewed, dictated and finalized at location . IMPRESSION: No evidence for malignancy. Findings compatible with benign lymph node at the outer left breast. BI-RADS Category 2: Benign finding(s).
== END 2024-08-15 09:16 | disposition home or self-care (01) ==
LOC: MICIMG 09:16
PROVIDERS: PCP Student in an Organized Health Care Education/Training Program; Visit Provider Student in an Organized Health Care Education/Training Program
DX: R92.2 Inconclusive mammogram (principal)
CPT/HCPCS: 76642; 77061; 77065; G0279